=== PATIENT | female | born 2005 | race Hispanic/Latino ===

== ENCOUNTER 2025-03-26 02:13 | Inpatient (IN) | payer SELFPAY ==
[~2025-03-26] VITALS: Ht 144.8 cm; Wt 34.5 kg
--- NOTE | 2025-03-26 02:32 | ERN ---
ED Note History of Present Illness Stated Complaint: VOMITING FOR 20 DAYS Chief Complaint: Nausea,Vomiting,Diarrhea Time Seen by MD: 02:23 Dictation: This is a 20-year-old female who presented to the emergency room complaining of daily vomitings for the past 20 days. Apparently she saw a physician in [place] who told her that her digestive system is very slow. She also reports some nausea. No hematemesis or melena Her LMP is in August 2024 and has been extremely irregular. No fever chills or rigors. Temperature 97.4 pulse 110 respirations 20 blood pressure 114/75 with a pulse oximetry of 100% on room air Allergies: Uncoded Allergies: ' PROMOTIL ' (Allergy, Unknown, 03/26/25) Past Medical History Past Medical History: Other Additional Past Medical Hx: COLITIS Surgical History: Other Surgical History Other: COLON, RECTAL Family History: Negative Social History: Negative RN Note Reviewed/Agreed w/PFSH: Yes Review of System Dictation Constitutional: Negative for fever,chills, and weight loss Eyes: Negative for injury, pain,redness, and discharge ENT: Negative for injury,pain or swelling Cardiovascular: Negative for chest pain, palpitations, and edema Respiratory: Negative for shortness of breath, cough, and wheezing, Abdomen/GI: Negative for abdominal pain,diarrhea, and constipation positive nausea, vomiting, Back: Negative for injury and pain : Negative for injury, bleeding and discharge MS/Extremity: Negative for injury and deformity Skin: Negative for rash, and discoloration Neuro: Negative for headache, weakness, numbness, tingling, and seizure Psych: Negative for suicide ideation, homicidal ideation, and hallucinations Initial Vital Sign VS Vital Signs Date Time Temp Pulse Resp B/P (MAP) Pulse Ox O2 Delivery O2 Flow Rate FiO2 03/26/25 02:14 97.3 110 20 114/78 100 Room Air 03/26/25 02:20 0 21 Physical Exam Dictation General: awake, alert, NAD cachectic female Head/Face: Normocephalic, atraumatic Eyes: PERRL, EOMI, vision at baseline ENT: oral cavity clear, TMs clear, no signs of infection Neck: Trachea midline, supple, no nuchal rigidity Cardiovascular: RRR, normal S1/S2, No MRGs, no JVD Respiratory: CTAB, no respiratory distress, No rales or wheezes Abdomen: Soft, non-tender, non-distended, normal bowel sounds, no guarding or rebound. Skin: Warm, dry, normal turgor, no rash MS/Extremity: Pulses equal, no cyanosis, neurovascular intact, FROM Neuro: COAx4, GCS 15, strength 5/5, CN 2-12 intact, normal cerebellar exam, normal gait, Psych: Normal behavior, mood, and affect normal Extremities-trace edema without any palpable cords, Homans sign is negative Results (Laboratory/Radiology) Laboratory/Radiology Laboratory Tests Test 03/26/25 02:26 White Blood Count 7.7 K/uL (4.8-10.8) Red Blood Count 5.23 MIL/uL (4.00-5.50) Hemoglobin 14.9 g/dL (12.0-16.0) Hematocrit 44.2 % (36-48) Mean Corpuscular Volume 84.5 fL (80-100) Mean Corpuscular Hemoglobin 28.5 pg (27.0-33.0) Mean Corpuscular Hemoglobin Concent 33.7 g/dL (32.0-36.0) Red Cell Distribution Width 13.1 % (11.0-15.5) Platelet Count 341 K/uL (130-400) Mean Platelet Volume 10.1 fL (7.5-10.5) Immature Granulocyte % (Auto) 0.4 % (0-1) Neutrophils (%) (Auto) 83.6 % (40.0-77.0) H Lymphocytes (%) (Auto) 10.5 % (21.0-51.0) L Monocytes (%) (Auto) 4.4 % (3.0-13.0) Eosinophils (%) (Auto) 0.6 % (0.0-8.0) Basophils (%) (Auto) 0.5 % (0.0-5.0) Neutrophils # (Auto) 6.5 K/uL (1.8-7.7) Lymphocytes # (Auto) 0.8 K/uL (1.0-4.8) L Monocytes # (Auto) 0.3 K/uL (0.1-1.0) Eosinophils # (Auto) 0.05 K/uL (0.00-0.70) Basophils # (Auto) 0.04 K/uL (0.00-0.20) Absolute Immature Granulocyte (auto 0.03 K/uL (0-1) Nucleated Red Blood Cells 0.0 % (0.0-0.19) Sodium Level 136 mmol/L (136-145) Potassium Level 4.3 mmol/L (3.5-5.1) Chloride Level 95 mmol/L (101-111) L Carbon Dioxide Level 28 mmol/L (21-32) Blood Urea Nitrogen 8 mg/dL (7-18) Creatinine 0.8 mg/dL (0.5-1.0) Glomerular Filtration Rate Calc 107 mL/min (>90) Random Glucose 80 mg/dL (70-105) Total Calcium 9.6 mg/dL (8.5-10.1) Lipase 45 U/L (16-77) Thyroid Stimulating Hormone (TSH) 1.71 uIU/mL (0.36-3.74) Human Chorionic Gonadotropin, Quant 0 mIU/mL (0-5) Labs Reviewed?: Yes CT Scan Comment: REASON: vomitngs for the past 20 days, weight loss ORDERING PHYSICIAN: FERDINAND COBB MD PROCEDURE: ABD PEL W - CT ABDOMEN/PELVIS W/CONTRAST EXAM: CT Abdomen and Pelvis with IV contrast CLINICAL HISTORY: Vomiting for the past 20 days. Weight loss. TECHNIQUE: Thin collimated axial CT images of the abdomen and pelvis were obtained, with sagittal and coronal reformatted images also submitted. A CT scan is done according to ALARA (As Low As Reasonably Achievable). CONTRAST: Contrast information is not available. COMPARISON: None. FINDINGS: Unremarkable visualized lung parenchyma. No focal abnormality within the gallbladder, pancreas, spleen, or adrenals. There are multifocal wedge-shaped hypodensities in the right kidney on early postcontrast which which become homogeneous on delayed postcontrast phase, the largest focus measures up to 1.5 cm; the possibility of a mild form of acute pyelonephritis cannot be entirely excluded. Mild diffuse intrahepatic periportal edema. Diffuse mucosal thickening in the small and large bowel loops, concerning acute enterocolitis. Surgical sutures around the rectosigmoid area. Bowel loops are normal in caliber without evidence of obstruction or ileus. The appendix is normal. There is no abnormality within the urinary bladder. Unremarkable reproductive organs. Abdominal and pelvic vessels are patent. No lymphadenopathy. Minimal free fluid in the pelvis. There is no acute osseous abnormality. Bilateral chronic L5 spondylolysis with grade 1 anterior listhesis of L5 on S1. IMPRESSIONS: Acute enterocolitis. Mild diffuse intrahepatic periportal edema, concerning mild acute hepatitis. There are multifocal wedge-shaped hypodensities in the right kidney on early postcontrast which which become homogeneous on delayed postcontrast phase, the largest focus measures up to 1.5 cm; the possibility of a mild form of acute pyelonephritis cannot be entirely excluded. Minimal free fluid in the pelvis. There may be a possibility of hyponatremia. /[place] DICTATED BY: SHALOM CAMPOS Jr., MD DATE: 03/26/25708 ELECTRONICALLY SIGNED BY: SHALOM CAMPOS Jr., MD DATE: 03/26/25708 ED Course ED Course Orders Procedure Category Date Status Time Cbc With Differential LAB 03/26/25 Complete 02:27 Hcg,Quantitative LAB 03/26/25 Complete 02:27 Urinalysis Profile LAB 03/26/25 Logged 02:27 0.9%Nacl 1000ml (Ns PHA 03/26/25 Complete 1000ml) 02:30 Ondansetron 4mg Inj PHA 03/26/25 Complete (Zofran 4mg Inj) 02:30 Pantoprazole 40mg Inj PHA 03/26/25 Complete (Protonix 40mg Inj 02:30 Lipase LAB 03/26/25 Complete 02:27 Basic Metabolic Panel LAB 03/26/25 Complete 02:27 Drug Screen Urine LAB 03/26/25 Logged 02:29 Thyroid Stimulating LAB 03/26/25 Complete Hormone 02:26 Iohexol (Omnipaque) PHA 03/26/25 Complete 05:01 Ct Abdomen/Pelvis CT 03/26/25 Resulted W/Contrast 04:22 Zosyn 3.375gm+Ns 50ml PHA 03/26/25 Complete (Zosyn 3.375gm+Ns 06:30 Edm Admit Bridge Order ADM 03/26/25 Verified 06:46 Current Medications Medications (Trade) Dose Ordered Sig/Baljit Route PRN Reason Start Time Stop Time Status Last Admin Dose Admin Iohexol (Omnipaque) 75 ml STK-MED ONCE IV 03/26/25 05:01 03/26/25 05:01 DC Ondansetron HCl (zoFRAN 4MG INJ) 4 mg ONCE ONCE IVP 03/26/25 02:30 03/26/25 02:31 DC 03/26/25 02:36 Pantoprazole Sodium (PROTonix 40MG INJ) 40 mg ONCE ONCE IVP 03/26/25 02:30 03/26/25 02:31 DC 03/26/25 02:36 Piperacillin Sod/ Tazobactam Sod (Zosyn 3.375gm+NS 50ml) 3.375 gm ONCE ONCE IV 03/26/25 06:30 03/26/25 06:31 DC Sodium Chloride 1,000 ml @ 0 mls/hr ONCE ONCE IV 03/26/25 02:30 03/26/25 02:31 DC 03/26/25 02:36 Vital Signs Date Time Temp Pulse Resp B/P (MAP) Pulse Ox O2 Delivery O2 Flow Rate FiO2 03/26/25 03:25 78 18 114/80 99 Room Air* 0 21 03/26/25 02:20 97.7 113 18 112/84 99 Room Air* 0 21 03/26/25 02:14 97.3 110 20 114/78 100 Room Air We will perform diagnostic labs, advanced imaging and administer medications according to the patient's complaint. Once the results are available, will review and personally interpreted the labs to rule out any acute life-threa tening emergency the trach require immediate intervention and treatment. I will then re-evaluate the patient after treatment and diagnostic exams have return to determine whether the patient requires any further testing, can safely be discharged home or need further admission to hospital for additional treatment and evaluation. Labs reviewed CBC is with a normal limits BNP 7 with a normal limits except for a chloride of 95 urine test is negative. TSH is 1.71. CT scan of the abdomen and pelvis is very impressive for extensive enterocolitis periportal edema and also multiple changes in the kidneys. I recommended admission to the hospital for the intractable vomitings severe weight loss and patient and mother are agreeable 6:45 [facility] for admission and further management Medical Decision Making MDM Differential diagnosis: Gastritis, enterocolitis, cholecystitis, pancreatitis, diverticulitis Rationale: Tests considered and ordered secondary to shared decision making include: labs, ECG and radiology Previous outside records reviewed: Old ER visits. Risk of complication and/or morbidity or mortality of patient management: None Medications-Per medication reconciliation Need for hospitalization: Patient does meet criteria for hospitalization. Need for emergency major/minor surgery: No There are no social concerns with this patient. Prescription drug management Prescriptions will include symptomatic care Patient's prior external medical records from other ER visits were reviewed by me as indicated. Prior testing and results from previous visits were reviewed. Prior tests were taken into account with medical decision making and resource utilization, independent historian/historians were used to obtain complete medical history. I independently interpreted the test that were performed, results were reviewed by me and considered findings on radiology if ordered. Medical management and examination interpretation discussions were had by me with other qualified healthcare professionals as indicated for the patient's care. Problem List Problem List: (1) Enterocolitis (2) Intractable nausea and vomiting (3) Weight loss (4) Cachexia DX & DISP Disposition: Inpatient Decision to Admit Time: 06:23 Departure Impression: Primary Impression: Enterocolitis Additional Impressions: Intractable nausea and vomiting, Weight loss, Cachexia Condition: Stable Additional Instructions: Patient was informed of all the diagnostic labs and procedures conducted in the emergency room today and demonstrated understanding of the results. I personally reviewed and interpreted all the diagnostic exams performed in the ER today. The patient will be admitted to the hospital for further treatment and evaluation. Disposition-admit to facility Condition-stable/guarded Course-uncertain at this time Pain status-decreased Assessment-exam unchanged Admission Certification- I certify that the patients status is appropriate and is based on my best clinical judgment and the patient's condition as documented in the medical records Referrals: NONE (PCP) FERDINAND COBB MD Mar 26, 2025 02:32
[2025-03-26] MEDS: 0.9%NACL 1000ML 1,000 ML IV ONE (02:36)
[2025-03-26 02:40] LABS: IMMATURE GRANULOCYTE ABSOLUTE 0.03 K/uL (0-1); NUCLEATED RED BLOOD CELLS 0.0 % (0.0-0.19); PLATELET COUNT (AUTO) 341 K/uL (130-400); RED BLOOD CELL COUNT(AUTO) 5.23 MIL/uL (4.00-5.50); RED CELL DISTRIBUTION WIDTH 13.1 % (11.0-15.5); WHITE BLOOD COUNT (AUTO) 7.7 K/uL (4.8-10.8)
[2025-03-26 02:53] LABS: CREATININE 0.8 mg/dL (0.5-1.0); GLOMERULAR FILTR. RATE CALC 107.0 mL/min (>90); GLUCOSE,RANDOM 80.0 mg/dL (70-105); SODIUM SERUM 136.0 mmol/L (136-145); UREA NITROGEN, BLOOD 8.0 mg/dL (7-18)
[2025-03-26 03:07] LABS: HCG,QUANTITATIVE 0.0 mIU/mL (0-5)
[2025-03-26] MEDS ORDERED: IOHEXOL-350 75 ML VIAL IV ONE (05:01)
--- NOTE | 2025-03-26 06:09 | HMCIMG ---
EXAM: CT Abdomen and Pelvis with IV contrast CLINICAL HISTORY: Vomiting for the past 20 days. Weight loss. TECHNIQUE: Thin collimated axial CT images of the abdomen and pelvis were obtained, with sagittal and coronal reformatted images also submitted. A CT scan is done according to ALARA (As Low As Reasonably Achievable). CONTRAST: Contrast information is not available. COMPARISON: None. FINDINGS: Unremarkable visualized lung parenchyma. No focal abnormality within the gallbladder, pancreas, spleen, or adrenals. There are multifocal wedge-shaped hypodensities in the right kidney on early postcontrast which which become homogeneous on delayed postcontrast phase, the largest focus measures up to 1.5 cm; the possibility of a mild form of acute pyelonephritis cannot be entirely excluded. Mild diffuse intrahepatic periportal edema. Diffuse mucosal thickening in the small and large bowel loops, concerning acute enterocolitis. Surgical sutures around the rectosigmoid area. Bowel loops are normal in caliber without evidence of obstruction or ileus. The appendix is normal. There is no abnormality within the urinary bladder. Unremarkable reproductive organs. Abdominal and pelvic vessels are patent. No lymphadenopathy. Minimal free fluid in the pelvis. There is no acute osseous abnormality. Bilateral chronic L5 spondylolysis with grade 1 anterior listhesis of L5 on S1. IMPRESSIONS: Acute enterocolitis. Mild diffuse intrahepatic periportal edema, concerning mild acute hepatitis. There are multifocal wedge-shaped hypodensities in the right kidney on early postcontrast which which become homogeneous on delayed postcontrast phase, the largest focus measures up to 1.5 cm; the possibility of a mild form of acute pyelonephritis cannot be entirely excluded. Minimal free fluid in the pelvis. There may be a possibility of hyponatremia. /[place]
[2025-03-26] MEDS: ZOSYN 3.375GM +NS 50ML IV ONE (06:52)
--- NOTE | 2025-03-26 07:05 | NUR ---
Assumed care of pt at this time.
[2025-03-26] MEDS ORDERED: NITROGLYCERIN 0.4 MG SL TAB SL PRN (07:30)
[2025-03-26] MEDS ORDERED: GLUCAGON 1MG KIT 1 MG ML IM PRN (07:30)
[2025-03-26] MEDS ORDERED: FAMOTIDINE 20MG VIAL IV PRN (07:30)
[2025-03-26] MEDS ORDERED: PoTASSium chl 10% ELIXIR 20MEQ 20 MEQ/15 ML UDCUP PO PRN (07:30)
[2025-03-26] MEDS ORDERED: guaiFENesin-DM 200/20MG 10ML PO PRN (07:30)
[2025-03-26] MEDS ORDERED: MAGNESIUM 2GM PREMIX 50ML 50 ML IV PRN (07:30)
[2025-03-26] MEDS ORDERED: LACTULOSE 20 GM/30 ML UDCUP PO PRN (07:30)
[2025-03-26] MEDS ORDERED: MAG/ALUM/SIMETH 30 ML UDCUP PO PRN (07:30)
[2025-03-26 08:09] LABS: AMPHET/METH SCREEN,URINE NEGATIVE (NEGATIVE); BARBITURATE SCREEN, URINE NEGATIVE (NEGATIVE); CANNABINOID SCREEN,URINE NEGATIVE (NEGATIVE); COCAINE SCREEN,URINE NEGATIVE (NEGATIVE)
[2025-03-26 08:16] LABS: APPEARANCE,URINE CLEAR (CLEAR); GLUCOSE, URINE (UA) NEGATIVE (NEGATIVE); LEUKOCYTE ESTERASE ,URINE 75 Leu/uL (NEGATIVE); NITRATE,URINE NEGATIVE (NEGATIVE); OCCULT BLOOD,URINE NEGATIVE (NEGATIVE)
[2025-03-26 08:24] LABS: COVID19 (SARS ANTIGEN RAPID) PRESUMPTIVE NEGATIVE (NEGATIVE)
--- NOTE | 2025-03-26 08:25 | HMCIMG ---
EXAM: CR Chest, 1 View. CLINICAL HISTORY: congestion COMPARISON: None provided. FINDINGS: LUNGS: The lungs show no infiltrate or other acute finding. PLEURAL SPACES: No evidence of pleural effusion or pneumothorax. MEDIASTINUM: Cardiac size and mediastinal contours within normal limits. BONES: No aggressive appearing osseous lesion seen. IMPRESSION: No acute cardiopulmonary pathology is evident. /[place]
[2025-03-26 08:41] LABS: ADD UA MICROSCOPIC YES
[2025-03-26 08:42] LABS: INFLUENZA TYPE A Negative For Type A (NEGATIVE); INFLUENZA TYPE B Negative For Type B (NEGATIVE)
[2025-03-26 09:04] LABS: SQUAMOUS EPITHELIAL CELL,UR MANY /HPF (0-2)
--- NOTE | 2025-03-26 09:17 | NUR ---
GAVE REPORT TO SOBEIDA THOMPSON, PATIENT WAS TRANSFERRED TO ROOM #[id number], WAS TRANSPORTED VIA WHEELCHAIR WITH HER PERSONAL BELONGINGS.
[2025-03-26 09:30] VITALS: BP 104/69; PULSE 72; RESP 16; TEMP 98.2
--- NOTE | 2025-03-26 09:54 | HP ---
[facility] HISTORY AND PHYSICAL Date of Service: Mar 26, 2025 Time of Service: 09:43 PCP: In [place] Admitting: Dr Segura, Allergies: promotil HISTORY OF PRESENT ILLNESS: [Patient is20 years old female with a past medical history of ulcerative colitis s/p colon removal March 2024, partial rectal removal July 2024 followed by creation of J-pouch October 2024 in [facility], who came to emergency department with a complaint of nausea, vomiting for the past 20 days. Patient also stated that she lost about4 to 5 kg in the time as well. Family members/mother at the bedside. Per patient anything she would drink or eat she can not hold it and within an hour she would vomit everything. Patient denies any abdominal pain. Most recent vital signs 98.1 Pulse 79 respiration 15 blood pressure 110/57 influenza A negative influenza B negative COVID negative. UA positive for leuko cytosis. Toxicology negative. Sodium 136 potassium 4.3 CO2 28 BUN 8 creatinine 0.8 GFR 107 lipase 45 hCG negative . WBC 7.7 Hemoglobin 14.9 hematocrit 44.[address] abdomen/pelvis showed acute enterocolitis, intrahepatic periportal edema. P ossible acute hepatitis. Acute pyelonephritis. Chest x-ray negative. Patient will be admitted under hospitalist care for further evaluation/recommendation. GI will be consulted for further plan and recommendations. Dietary consultation will be provided to patient for severe malnutrition. A.m. labs. REVIEW OF SYSTEMS CONSTITUTIONAL: Denies fevers, chills, or night sweats. No unintentional weight loss reported. NEUROLOGICAL: Denies headache, amaurosis fugax, motor weakness, sensory deficit, vertigo/spinning sensation, gait abnormalities, or tremors. ENT: No hearing loss, otalgia, otorrhea, rhinitis, rhinorrhea, hoarseness, or sore throat. CARDIOVASCULAR: Denies any exertional angina, dyspnea on exertion, orthopnea, paroxysmal nocturnal dyspnea, palpitations, life-threatening arrhythmias, claudication. PULMONARY: Denies any shortness of breath, cough, phlegm/sputum, hemoptysis, pleuritic chest pain. SLEEP: Denies morning headaches, daytime somnolence or napping. Denies difficulty falling asleep, staying asleep, waking from sleep. Denies knowledge of snoring. GASTROINTESTINAL: Denies any type of dysphagia to either liquids or solids. Denies pyrosis, early satiety, abdominal pain, diarrhea, constipation, or changes in stool consistency or caliber. Denies coffee-ground emesis, hematemesis, hematochezia, or melanotic stools. Severe nausea and vomiting GENITOURINARY: Denies frequency, urgency, nocturia, hematuria or incontinence (Storage/Irritative symptoms.) Low urinary stream, straining to void, urinary intermittency or hesitancy, splitting of the voiding stream, terminal dribbling. ENDOCRINOLOGIC: Denies polyuria, polydipsia, polyphagia or heat/cold intolerances. HEMATOLOGIC: Denies thrombophilia/previous clots, or coagulopathy/bleeding disorders. ONCOLOGIC: Denies personal history of malignancy. DERMATOLOGIC: Denies rashes or pruritus. PSYCHIATRIC: Denies any suicidal or homicidal ideation. Denies hallucinations. PAST MEDICAL HISTORY: [ Ulcerative colitis ] PAST SURGICAL HISTORY: [ : Removed March 2024, partial rectal removed July 2024. J pouch creation October 2024. All the surgeries we will performed in [facility] ] PAST SOCIAL HISTORY: [ Patient denies smoking. Patient denies any drug illicit. Patient denies any alcohol illicit ] FAMILY HISTORY: [ Patient lives at home with the family] Uncoded Allergies: ' PROMOTIL ' (Allergy, Unknown, 03/26/25) PHYSICAL EXAM GENERAL APPEARANCE: The patient is awake, alert, and oriented, in no acute cardiopulmonary distress. NEUROLOGICAL: Cranial nerves II-XII grossly intact. Motor is 5/5 in bilateral upper and lower extremities proximal to distal. No sensory deficits. HEENT: Face is symmetric. Pupils are equal and reactive. Extraocular movements are intact. NECK: Supple. No JVD. No thyromegaly. No submental, submandibular, pre- /postauricular, occipital or supraclavicular lymphadenopathy. CHEST: Normal chest expansion. No Telemetry. LUNGS: Absence of any rales, rhonchi or any wheezing. CARDIOVASCULAR: Regular. S1 and S2 normal. No appreciable rubs, murmurs or gallops. ABDOMEN: Soft, nontender, and nondistended. There is no rebound, voluntary guarding, or rigidity. : Deferred. No Milligan. EXTREMITIES: Non-edematous and not cyanotic. No clubbing. Good capillary refill. SKIN: No skin breakdown. Vital Sign (Last 24 Hours) 03/26/25 09:26 Temp 98.1 Pulse 79 Resp 15 B/P (MAP) 110/57 Pulse Ox 99 O2 Delivery Room Air* O2 Flow Rate 0 FiO2 21 LABS: Laboratory: Test 03/26/25 09:18 03/26/25 07:24 03/26/25 02:26 Range/Units Whole Blood Glucose 75 70-110 MG/DL Urine Color LIGHT-YELLOW YELLOW Urine Appearance CLEAR CLEAR Urine pH 6.5 5.0-8.0 Urine Specific [place] >1.040 1.001-1.031 Urine Protein 30 H NEGATIVE mg/dL Urine Glucose (UA) NEGATIVE NEGATIVE mg/dL Urine Ketones >=80 NEGATIVE mg/dL Urine Occult Blood NEGATIVE NEGATIVE Urine Nitrate NEGATIVE NEGATIVE Urine Bilirubin NEGATIVE NEGATIVE mg/dL Urine Urobilinogen 0.2 0.2-1.0 mg/dL Urine Leukocyte Esterase 75 H NEGATIVE [place]/uL Urine RBC 11-25 H 0-1 /HPF Urine WBC 6-10 H 0-1 /HPF Urine Squamous Epithelial Cells MANY 0-2 /HPF Urine Bacteria MOD None Seen /HPF Urine Opiates Screen NEGATIVE NEGATIVE Urine Barbiturates Screen NEGATIVE NEGATIVE Urine Phencyclidine Screen NEGATIVE NEGATIVE Urine Amphetamines Screen NEGATIVE NEGATIVE Urine Benzodiazepines Screen NEGATIVE NEGATIVE Urine Cocaine Screen NEGATIVE NEGATIVE Urine Marijuana (THC) Screen NEGATIVE NEGATIVE Influenza Type A Antigen Negative For Type A NEGATIVE Influenza Type B Antigen Negative For Type B NEGATIVE SARS-CoV-2 Antigen (Rapid) PRESUMPTIVE NEGATIVE NEGATIVE White Blood Count 7.7 4.8-10.8 K/uL Red Blood Count 5.23 4.00-5.50 MIL/uL Hemoglobin 14.9 12.0-16.0 g/dL Hematocrit 44.2 36-48 % Mean Corpuscular Volume 84.5 80-100 fL Mean Corpuscular Hemoglobin 28.5 27.0-33.0 pg Mean Corpuscular Hemoglobin Concent 33.7 32.0-36.0 g/dL Red Cell Distribution Width 13.1 11.0-15.5 % Platelet Count 341 130-400 K/uL Mean Platelet Volume 10.1 7.5-10.5 fL Immature Granulocyte % (Auto) 0.4 0-1 % Neutrophils (%) (Auto) 83.6 H 40.0-77.0 % Lymphocytes (%) (Auto) 10.5 L 21.0-51.0 % Monocytes (%) (Auto) 4.4 3.0-13.0 % Eosinophils (%) (Auto) 0.6 0.0-8.0 % Basophils (%) (Auto) 0.5 0.0-5.0 % Neutrophils # (Auto) 6.5 1.8-7.7 K/uL Lymphocytes # (Auto) 0.8 L 1.0-4.8 K/uL Monocytes # (Auto) 0.3 0.1-1.0 K/uL Eosinophils # (Auto) 0.05 0.00-0.70 K/uL Basophils # (Auto) 0.04 0.00-0.20 K/uL Absolute Immature Granulocyte (auto 0.03 0-1 K/uL Nucleated Red Blood Cells 0.0 0.0-0.19 % Sodium Level 136 136-145 mmol/L Potassium Level 4.3 3.5-5.1 mmol/L Chloride Level 95 L 101-111 mmol/L Carbon Dioxide Level 28 21-32 mmol/L Blood Urea Nitrogen 8 7-18 mg/dL Creatinine 0.8 0.5-1.0 mg/dL Glomerular Filtration Rate Calc 107 >90 mL/min Random Glucose 80 70-105 mg/dL Total Calcium 9.6 8.5-10.1 mg/dL Lipase 45 16-77 U/L Thyroid Stimulating Hormone (TSH) 1.71 0.36-3.74 uIU/mL Human Chorionic Gonadotropin, Quant 0 0-5 mIU/mL Current Medications Medications (Trade) Dose Ordered Sig/Baljit Route PRN Reason Start Time Stop Time Status Last Admin Dose Admin Acetaminophen (TYLenol 325MG TAB) 650 mg Q4H PRN PO MILD PAIN (1-3) 03/26/25 07:30 04/25/25 07:29 Acetaminophen (TYLenol 325MG TAB) 650 mg Q6H PRN PO MILD PAIN (1-3) 03/26/25 07:30 03/26/25 07:22 DC Acetaminophen (TYLenol 325MG TAB) 650 mg Q6H PRN PO TEMPERATURE GREATER THAN 101.5 03/26/25 07:30 04/25/25 07:29 Al Hydroxide/Mg Hydroxide (MAALox PLUS 30ML) 30 ml Q6H PRN PO INDIGESTION 03/26/25 07:30 04/25/25 07:29 Dextrose (D50w) 50 ml AD PRN IV HYPOGLYCEMIA PROTOCOL 03/26/25 07:30 04/25/25 07:29 Diphenhydramine HCl (BENAdryl INJ) 25 mg Q6H PRN IV SEVERE ITCHING/RASH 03/26/25 07:30 04/25/25 07:29 Famotidine (Pepcid 20mg Vial) 20 mg BID PRN IV NAUSEA/VOMITING 03/26/25 07:30 04/25/25 07:29 Glucagon (Glucagon 1mg Kit) 1 mg AD PRN IM HYPOGLYCEMIA PROTOCOL 03/26/25 07:30 04/25/25 07:29 Guaifenesin/ Dextromethorphan (RobiTUSSin DM 200/20MG 10ML) 10 ml Q4H PRN PO COUGH 03/26/25 07:30 04/25/25 07:29 Hydralazine HCl (APRESOLine 20MG INJ) 10 mg Q6H PRN IV For:SBP above 160;DBP above 90 03/26/25 07:30 04/25/25 07:29 Insulin Human Regular (humuLIN R 100 UNIT/ML 3ML) INSULIN SLIDING SCAL... ACHS SQ 03/26/25 07:30 04/25/25 07:29 Ketorolac Tromethamine (toRADol) 15 mg Q8H PRN IV MODERATE PAIN (4-6) 03/26/25 07:30 03/31/25 07:29 Lactulose (Constulose 20gm/ 30ml Udcup) 20 gm BID PRN PO CONSTIPATION 03/26/25 07:30 04/25/25 07:29 Magnesium Sulfate 50 ml @ 0 mls/hr PROTOCOL PRN IV OTHER [SEE ORDER COMMENTS] 03/26/25 07:30 04/25/25 07:29 Morphine Sulfate (morPHINE 2MG SYG) 1 mg Q4H PRN IVP SEVERE PAIN (7-10) 03/26/25 07:30 04/02/25 07:29 Nitroglycerin (Nitrostat) 0.4 mg PROTOCOL PRN SL CHEST PAIN 03/26/25 07:30 04/25/25 07:29 Ondansetron HCl (zoFRAN 4MG INJ) 4 mg Q6H PRN IV NAUSEA/VOMITING 03/26/25 07:30 04/25/25 07:29 Piperacillin Sod/ Tazobactam Sod 50 ml @ 12.5 mls/hr ZOSY8 IV 03/26/25 13:00 04/05/25 12:59 Potassium Chloride 100 ml @ 100 mls/hr AD PRN IV POTASSIUM PROTOCOL 03/26/25 07:30 04/25/25 07:29 Potassium Chloride (K-Dur/Klor-Con 20meq) 20 meq AD PRN PO POTASSIUM PROTOCOL 03/26/25 07:30 04/25/25 07:29 Potassium Chloride (KCl 10% Elixir 20meq/15ml) 20 meq AD PRN PO POTASSIUM PROTOCOL 03/26/25 07:30 04/25/25 07:29 Sodium Chloride 1,000 ml @ 100 mls/hr Q10H IV 03/26/25 07:30 04/25/25 07:29 Zolpidem Tartrate (AmbIEN) 5 mg HS PRN PO INSOMNIA 03/26/25 07:30 04/25/25 07:29 DIAGNOSTICS / RADIOLOGY: [ ] ASSESSMENT: [ Gastroparesis POA Acute enterocolitis POA Intractable nausea and vomiting POA Intra hepatic periportal edema POA Possible acute hepatitis new diagnosis POA Acute pyelonephritis POA Severe malnutrition POA Hypertension POA Acute complicated cystitis POA Ulcerative colitis History of colon removed March 2024 History of partial rectum removal July 2024 J-pouch creation October 2024 ] PLAN: [ Patient admitted echo surgical floor as inpatient GI consulted Dietary consulted for malnutrition NPO Zosyn prophylaxis Normal saline at 100 mL/hour UA positive for leukocytosis Urine culture pending CT abdomen/pelvis showed acute enterocolitis, intrahepatic periportal edema, acute hepatitis, acute pyelonephritis Toxicology negative Ultrasound kidney pending Chest x-ray negative Ultrasound abdomen pending A.m. labs Hyper hypoglycemia protocol Hypomagnesemia protocol Hypokalemia protocol PRN pain medications Blood culture pending ] ADVANCED CARE PLANNING 1. Which of the following were discussed? Hospice Care - Yes / No Therapeutic options - Yes / No Advance Directives - Yes / No Other discussions - 2. Discussed with who? Patient 3. Voluntary nature of this service was explained to the patient? Yes / No 4. Amount of time spent - __35 minutes 5. Reviewed by Physician? (if this service was performed by NPP) Yes / No ATTESTATION BY PHYSICIAN I have seen and examined the patient. I reviewed the documentation, medical decision making, and treatment plan as noted by the mid-level provider above. I agree with the findings and plan of care. LES SEGURA MD, KATARZYNA B MANAGER PLAN Mar 26, 2025 09:54
[2025-03-26] MEDS ORDERED: MIRTAZAPINE PO (10:02)
[2025-03-26] MEDS ORDERED: [UNRECOGNIZED DRUG - OTHER] PO (10:05)
[2025-03-26] MEDS ORDERED: OMEP20TA20 PO (10:06)
[2025-03-26] MEDS ORDERED: ONDA-105 PO (10:06)
[2025-03-26 10:40] VITALS: O2SAT 98
[2025-03-26] MEDS: 0.9%NACL 1000ML 1,000 ML IV SCH (11:23)
[2025-03-26 12:00] VITALS: BP 97/75; PULSE 83; RESP 16; TEMP 97.7
[2025-03-26 16:00] VITALS: BP 95/71; PULSE 65; RESP 16; TEMP 97.5
[2025-03-26] MEDS: DEXTROSE 50%-WATER 50 ML DISP.SYRIN IV PRN (16:38)
[2025-03-26] MEDS: ZOSYN 3.375GM+NS 50ML 50 ML IV SCH (16:38)
[2025-03-26 20:40] VITALS: O2SAT 98
[2025-03-26 21:31] VITALS: BP 110/64; PULSE 75; RESP 19; TEMP 97.4
[2025-03-27] VITALS (23 sets, daily range): BP systolic 90–129; BP diastolic 53–78; PULSE 58–78; RESP 15–20; TEMP 97.1–98.6; O2SAT 98–100
[2025-03-27 05:07] LABS: IMMATURE GRANULOCYTE ABSOLUTE 0.01 K/uL (0-1); NUCLEATED RED BLOOD CELLS 0.0 % (0.0-0.19); PLATELET COUNT (AUTO) 230 K/uL (130-400); RED BLOOD CELL COUNT(AUTO) 3.75 MIL/uL (4.00-5.50); RED CELL DISTRIBUTION WIDTH 13.2 % (11.0-15.5); WHITE BLOOD COUNT (AUTO) 3.1 K/uL (4.8-10.8)
[2025-03-27 05:36] LABS: ASPARTATE AMINOTRANSFERASE 16.0 U/L (10-37); CREATINE KINASE, TOTAL 146.0 U/L (21-232); CREATININE 0.5 mg/dL (0.5-1.0); GLOMERULAR FILTR. RATE CALC 137.0 mL/min (>90); GLUCOSE,RANDOM 70.0 mg/dL (70-105); SODIUM SERUM 140.0 mmol/L (136-145); TOTAL PROTEIN, SERUM 5.8 g/dL (6.0-8.3); UREA NITROGEN, BLOOD 4.0 mg/dL (7-18)
--- NOTE | 2025-03-27 06:20 | HMCIMG ---
EXAMINATION: ULTRASOUND OF THE ABDOMEN (LIMITED) WITH COLOR DOPPLER. CLINICAL HISTORY: Enterocolitis. Hepatic edema. Possible hepatitis, pyelonephritis. COMPARISON: CT abdomen and pelvis with contrast from the same day. TECHNIQUE: Real-time grayscale ultrasound images of the abdomen. In addition, color Doppler is medically necessary to perform in order to evaluate vascularity and blood flow. FINDINGS: Liver: Normal in caliber, the right hepatic lobe measures 14.2 cm in the craniocaudal dimension. There is increased echogenicity of the hepatic parenchyma. There is no focal hepatic abnormality. There is normal spectral Doppler of the main portal vein (PSV is 16 cm/s). There is left intrahepatic biliary radical dilatation that measures 0.4 cm. Gallbladder: Within normal limits with normal wall thickness (0.2 cm). No hyperemia or pericholecystic free fluid. There is no cholelithiasis. Common bile duct is normal in caliber, measuring 0.3 cm. Spleen is normal in caliber and measures 9.4 x 2.6 x 2.2 cm in craniocaudal, AP and transverse dimensions respectively. No focal lesions. Pancreas: Normal in caliber and echotexture. No calcification or dilated pancreatic duct. The kidneys are normal in caliber, the right kidney measures 9.4 x 3.7 x 4.0 cm and the left kidney measures 9.3 x 4.8 x 5.3 cm in craniocaudal, AP, and transverse dimensions respectively. There is normal renal cortical thickness, and cortical echogenicity. There is no renal calculus or hydronephrosis. The proximal, mid, and distal aspects of abdominal aorta are normal in caliber measuring 1.6 cm, 1.5 cm, and 1.2 cm in the AP dimension respectively. Visualized aspects of the inferior vena cava are unremarkable. IMPRESSION: Hepatic steatosis. Dilated left intrahepatic biliary radical. Recommend MRCP. No significant changes. /Araceli
[2025-03-27] MEDS: DEXTROSE 5 % AND 0.9 % NACL 1,000 ML IV SCH (09:05)
--- NOTE | 2025-03-27 09:35 | NUR ---
DCP: HOME met with pt and her mother Karen García at bedside. Pt is from [facility] and currently staying with aunt Kathryn Torres [phone]. Pt states she does no work, but attends college. Pt drives, is acive and independent. Uses no DME or in home care services. PCP is in [facility] and she gets gets there as well. Pt to return to aunt's home at ar. Addendum: 03/27/25 at 0938 by QUIRINO GONCALVES Amended: Links added.
--- NOTE | 2025-03-27 13:51 | NUR ---
Nutrition consult per PCM eval Reviewed labs, notes, and medications. Pt s/p colon removal , J-pouch October, N/V for 20 days POA, attends [facility], [facility]D, IV fluids, IV abx, A1C WNL, BG 57(L), K 3(L) per chart review. Wt via standing scale, last BM 03/26/25, moderate fat and and muscle loss, no edema, no wounds per nursing. Family present during visit. Communicated in Bengali. Pt reported lactose intolerance, UBW of 96 lb six months ago, no insurance, goes to [facility], PCP in [facility], , no MVI. 15% wt loss within 6 months, significant wt loss. Mother feeding her during the visit. Visually assessed moderate fat and muscle loss. RD reviewed high calorie MNT, family verbalized understanding. Pt with severe PCM, Supplement thiamin 100 mg/day for 5-7 days + MVI QD for at least 10 days. Recommendations: -Provide prostat jello + CLD + gatorade BID w/ am and dinner tray -Monitor PO intake -Encourage PO intake as able -Monitor BM -If no BM >3 days consider stool softener -Monitor electrolytes -Replenish electrolytes per protocol -Monitor wts -Reweigh as able -Order Vit D, vit b-12 labs to rule out deficiencies -Provide MVI + b-complex QD due to severe PCM -Advance diet when medically feasible -Recommend Pt to follow up with PCP -Monitor goals of care RD to follow + available for consult per protocol Addendum: 03/27/25 at [address] Amended: Links added.
--- NOTE | 2025-03-27 15:00 | NUR ---
Order received and spoke to patient and family. Patient denies any need for PT at this time. Patient and family verbalized no skilled PT need. DC from PT. Addendum: 03/27/25 at 1546 by XAVIER THOMSON PT Amended: Links added.
--- NOTE | 2025-03-27 17:26 | PN ---
[facility] PROGRESS NOTE Date of Service: Mar 27, 2025 Time of Service: 17:08 SUBJECTIVE: Patient is 20 years female with a past medical history of ulcerative colitis s/p colon removal March 2024, partial rectal removal July 2024 followed by creation of J-pouch October 2024 in [facility], who came to emergency department with a complaint of nausea, vomiting for the past 20 days. Patient also stated that she lost about4 to 5 kg in the time as well. Family members/mother at the bedside. Per patient anything she would drink or eat she can not hold it and within an hour she would vomit everything. Patient denies any abdominal pain. Most recent vital signs 98.1 Pulse 79 respiration 15 blood pressure 110/57 influenza A negative influenza B negative COVID negative. UA positive for leukocytosis. Toxicology negative. Sodium 136 potassium 4.3 CO2 28 BUN 8 creatinine 0.8 GFR 107 lipase 45 hCG negative . WBC 7.7 Hemoglobin 14.9 hematocrit 44.[address] abdomen/pelvis showed acute enterocolitis, intrahepatic periportal edema. Possible acute hepatitis. Acute pyelonephritis. Chest x-ray negative. Patient will be admitted under hospitalist care for further evaluation/recommendation. GI will be consulted for further plan and recommendations. Dietary consultation will be provided to patient for severe malnutrition. A.m. labs. 03/27/2025: The patient is seen in the room [id number]. She is awake, alert, orientedx3. Today the patient reported experiencing rectal bleeding during bowel movements in the morning. The patient described no associated pain but noted a sensation s, which lasted of urge defecate which lasted about 6-7 minutes. The patient experienced nausea for the past 20 days and reported vomiting up to 4 times a day while at home, with the vomit sometimes being green. The patient did not report any abdominal pain, diarrhea, constipation chills, fever, urinary symptoms during urination. The patient noted a decreased appetite and weight loss since surgery in March 2024, presenting in a weight loss of about 16-17 kg. The patient has been experiencing increased stool frequency and urgency, going to the restroom up to 9 times per day, and this condition improved by December and January 2025. EGD was done and revealed normal esophagus normal duodenum, patchy moderate inflammation characterized by congestion and erythema was found in the entire examined stomach. General surgery recommendation was given. Patient changed from full liquid diet to clear diet. Patient has been identified as lactose intolerant. MRCP recommendation was given due to a dilated biliary duct. Keep the patient on NPO on the midnight before MRCP procedure. Her vitals are normal. Labs show WBC trending from 7.7 to 3.1, RBC trending down from 5.23 To 3.75, hemoglobin 10.6, hematocrit 33.0. Chemistry revealed ketones. She has severe protein calorie malnutrition. REVIEW OF SYSTEMS CONSTITUTIONAL: Denies fevers, chills, or night sweats. No unintentional weight loss reported. NEUROLOGICAL: Denies headache, amaurosis fugax, motor weakness, sensory deficit, vertigo/spinning sensation, gait abnormalities, or tremors. ENT: No hearing loss, otalgia, otorrhea, rhinitis, rhinorrhea, hoarseness, or sore throat. CARDIOVASCULAR: Denies any exertional angina, dyspnea on exertion, orthopnea, p aroxysmal nocturnal dyspnea, palpitations, life-threatening arrhythmias, claudication. PULMONARY: Denies any shortness of breath, cough, phlegm/sputum, hemoptysis, pleuritic chest pain. SLEEP: Denies morning headaches, daytime somnolence or napping. Denies difficulty falling asleep, staying asleep, waking from sleep. Denies knowledge of snoring. GASTROINTESTINAL: Denies any type of dysphagia to either liquids or solids. Denies pyrosis, early satiety, abdominal pain, diarrhea, constipation, or changes in stool consistency or caliber. Denies coffee-ground emesis, hematemesis, hematochezia, or melanotic stools. Severe nausea and vomiting GENITOURINARY: Denies frequency, urgency, nocturia, hematuria or incontinence (Storage/Irritative symptoms.) Low urinary stream, straining to void, urinary intermittency or hesitancy, splitting of the voiding stream, terminal dribbling. ENDOCRINOLOGIC: Denies polyuria, polydipsia, polyphagia or heat/cold intolerances. HEMATOLOGIC: Denies thrombophilia/previous clots, or coagulopathy/bleeding disorders. ONCOLOGIC: Denies personal history of malignancy. DERMATOLOGIC: Denies rashes or pruritus. PSYCHIATRIC: Denies any suicidal or homicidal ideation. Denies hallucinations. PHYSICAL EXAM GENERAL APPEARANCE: The patient is awake, alert, and oriented, in no acute cardiopulmonary distress. NEUROLOGICAL: Cranial nerves II-XII grossly intact. Motor is 5/5 in bilateral upper and lower extremities proximal to distal. No sensory deficits. HEENT: Face is symmetric. Pupils are equal and reactive. Extraocular movements are intact. NECK: Supple. No JVD. No thyromegaly. No submental, submandibular, pre- /postauricular, occipital or supraclavicular lymphadenopathy. CHEST: Normal chest expansion. No Telemetry. LUNGS: Absence of any rales, rhonchi or any wheezing. CARDIOVASCULAR: Regular. S1 and S2 normal. No appreciable rubs, murmurs or gallops. ABDOMEN: Soft, nontender, and nondistended. There is no rebound, voluntary guarding, or rigidity. : Deferred. No Milligan. EXTREMITIES: Non-edematous and not cyanotic. No clubbing. Good capillary refill. SKIN: No skin breakdown. Vital Signs (last 8hr) Date Time Temp Pulse Resp B/P (MAP) Pulse Ox O2 Delivery O2 Flow Rate FiO2 03/27/25 12:15 98.2 66 16 94/64 100 Room Air 03/27/25 12:10 97.2 65 16 103/62 99 Room Air 03/27/25 12:05 97.2 59 16 101/65 99 Room Air 03/27/25 12:00 97.2 62 16 100/63 99 Room Air 03/27/25 11:55 97.2 61 16 98/61 99 Room Air 03/27/25 11:50 97.2 62 15 100/60 97 Room Air 03/27/25 11:45 97.2 59 15 102/63 97 Room Air 03/27/25 11:40 97.2 60 15 101/66 96 Nasal Cannula 2.0 24 03/27/25 11:30 Mask 03/27/25 11:30 Mask 10.0 03/27/25 10:30 98.6 61 16 96/53 100 Room Air LABS: Laboratory: Test 03/27/25 15:30 03/27/25 15:02 03/27/25 10:34 03/27/25 08:47 Range/Units Whole Blood Glucose 86 # 70-110 MG/DL Hemoglobin 13.9 # 12.0-16.0 g/dL Hematocrit 44.3 # 36-48 % Bedside Glucose Comment Notified Nurse Whole Blood Ketones Quantitative 0.9 H 0.0-0.6 mmol/L Test 03/27/25 05:00 03/26/25 07:24 03/26/25 02:26 Range/Units White Blood Count 3.1 L 4.8-10.8 K/uL Red Blood Count 3.75 L 4.00-5.50 MIL/uL Mean Corpuscular Volume 88.0 80-100 fL Mean Corpuscular Hemoglobin 28.3 27.0-33.0 pg Mean Corpuscular Hemoglobin Concent 32.1 32.0-36.0 g/dL Red Cell Distribution Width 13.2 11.0-15.5 % Platelet Count 230 # 130-400 K/uL Mean Platelet Volume 10.0 7.5-10.5 fL Immature Granulocyte % (Auto) 0.3 0-1 % Neutrophils (%) (Auto) 52.8 40.0-77.0 % Lymphocytes (%) (Auto) 36.7 21.0-51.0 % Monocytes (%) (Auto) 6.7 3.0-13.0 % Eosinophils (%) (Auto) 2.9 0.0-8.0 % Basophils (%) (Auto) 0.6 0.0-5.0 % Neutrophils # (Auto) 1.7 L 1.8-7.7 K/uL Lymphocytes # (Auto) 1.2 1.0-4.8 K/uL Monocytes # (Auto) 0.2 0.1-1.0 K/uL Eosinophils # (Auto) 0.09 0.00-0.70 K/uL Basophils # (Auto) 0.02 0.00-0.20 K/uL Absolute Immature Granulocyte (auto 0.01 0-1 K/uL Nucleated Red Blood Cells 0.0 0.0-0.19 % Sodium Level 140 136-145 mmol/L Potassium Level 3.0 *L 3.5-5.1 mmol/L Chloride Level 108 101-111 mmol/L Carbon Dioxide Level 22 21-32 mmol/L Blood Urea Nitrogen 4 L 7-18 mg/dL Creatinine 0.5 0.5-1.0 mg/dL Glomerular Filtration Rate Calc 137 >90 mL/min Random Glucose 70 70-105 mg/dL Lactic Acid Level 0.9 0.8-2.5 mmol/L Total Calcium 7.7 L 8.5-10.1 mg/dL Magnesium Level 1.80 1.80-2.40 mg/dL Total Bilirubin 0.8 0.2-1.0 mg/dL Direct Bilirubin 0.2 0.0-0.3 mg/dL Aspartate Amino Transf (AST/SGOT) 16 10-37 U/L Alanine Aminotransferase (ALT/SGPT) 21 12-78 U/L Alkaline Phosphatase 80 50-136 U/L Ammonia 12 11-32 umol/L Total Creatine Kinase 146 21-232 U/L B-Type Natriuretic Peptide 9 0-100 pg/mL Total Protein 5.8 L 6.0-8.3 g/dL Albumin 2.7 L 3.5-5.0 g/dL Amylase Level 24 L 25-115 U/L Lipase 38 16-77 U/L Vitamin B12 Level 1051 H 193-986 pg/mL Procalcitonin < 0.05 L 0.05-0.5 ng/mL Thyroid Stimulating Hormone (TSH) 2.14 # 0.36-3.74 uIU/mL Free Thyroxine (T4) Direct 1.26 0.76-1.46 ng/dL Urine Color LIGHT-YELLOW YELLOW Urine Appearance CLEAR CLEAR Urine pH 6.5 5.0-8.0 Urine Specific [place] >1.040 1.001-1.031 Urine Protein 30 H NEGATIVE mg/dL Urine Glucose (UA) NEGATIVE NEGATIVE mg/dL Urine Ketones >=80 NEGATIVE mg/dL Urine Occult Blood NEGATIVE NEGATIVE Urine Nitrate NEGATIVE NEGATIVE Urine Bilirubin NEGATIVE NEGATIVE mg/dL Urine Urobilinogen 0.2 0.2-1.0 mg/dL Urine Leukocyte Esterase 75 H NEGATIVE Aspen/uL Urine RBC 11-25 H 0-1 /HPF Urine WBC 6-10 H 0-1 /HPF Urine Squamous Epithelial Cells MANY 0-2 /HPF Urine Bacteria MOD None Seen /HPF Urine Opiates Screen NEGATIVE NEGATIVE Urine Barbiturates Screen NEGATIVE NEGATIVE Urine Phencyclidine Screen NEGATIVE NEGATIVE Urine Amphetamines Screen NEGATIVE NEGATIVE Urine Benzodiazepines Screen NEGATIVE NEGATIVE Urine Cocaine Screen NEGATIVE NEGATIVE Urine Marijuana (THC) Screen NEGATIVE NEGATIVE Influenza Type A Antigen Negative For Type A NEGATIVE Influenza Type B Antigen Negative For Type B NEGATIVE SARS-CoV-2 Antigen (Rapid) PRESUMPTIVE NEGATIVE NEGATIVE Hemoglobin A1c 4.9 4.0-6.0 % Estimated Average Glucose (eAG) 94 70-126 mg/dL Human Chorionic Gonadotropin, Quant 0 0-5 mIU/mL Current Medications Medications (Trade) Dose Ordered Sig/Baljit Route PRN Reason Start Time Stop Time Status Last Admin Dose Admin Acetaminophen (TYLenol 325MG TAB) 650 mg Q4H PRN PO MILD PAIN (1-3) 03/26/25 07:30 04/25/25 07:29 Acetaminophen (TYLenol 325MG TAB) 650 mg Q6H PRN PO MILD PAIN (1-3) 03/26/25 07:30 03/26/25 07:22 DC Acetaminophen (TYLenol 325MG TAB) 650 mg Q6H PRN PO TEMPERATURE GREATER THAN 101.5 03/26/25 07:30 04/25/25 07:29 Al Hydroxide/Mg Hydroxide (MAALox PLUS 30ML) 30 ml Q6H PRN PO INDIGESTION 03/26/25 07:30 04/25/25 07:29 Dextrose (D50w) 50 ml AD PRN IV HYPOGLYCEMIA PROTOCOL 03/26/25 07:30 04/25/25 07:29 03/27/25 05:31 50 ML Dextrose/Sodium Chloride 1,000 ml @ 75 mls/hr [id number] IV 03/27/25 08:30 04/26/25 08:29 03/27/25 09:05 75 MLS/HR Diphenhydramine HCl (BENAdryl INJ) 25 mg Q6H PRN IV SEVERE ITCHING/RASH 03/26/25 07:30 04/25/25 07:29 Famotidine (Pepcid 20mg Vial) 20 mg BID PRN IV NAUSEA/VOMITING 03/26/25 07:30 04/25/25 07:29 Glucagon (Glucagon 1mg Kit) 1 mg AD PRN IM HYPOGLYCEMIA PROTOCOL 03/26/25 07:30 04/25/25 07:29 Guaifenesin/ Dextromethorphan (RobiTUSSin DM 200/20MG 10ML) 10 ml Q4H PRN PO COUGH 03/26/25 07:30 04/25/25 07:29 Hydralazine HCl (APRESOLine 20MG INJ) 10 mg Q6H PRN IV For:SBP above 160;DBP above 90 03/26/25 07:30 04/25/25 07:29 Insulin Human Regular (humuLIN R 100 UNIT/ML 3ML) INSULIN SLIDING SCAL... ACHS SQ 03/26/25 07:30 04/25/25 07:29 Ketorolac Tromethamine (toRADol) 15 mg Q8H PRN IV MODERATE PAIN (4-6) 03/26/25 07:30 03/27/25 08:16 DC Lactulose (Constulose 20gm/ 30ml Udcup) 20 gm BID PRN PO CONSTIPATION 03/26/25 07:30 04/25/25 07:29 Magnesium Sulfate 50 ml @ 0 mls/hr PROTOCOL PRN IV OTHER [SEE ORDER COMMENTS] 03/26/25 07:30 04/25/25 07:29 Morphine Sulfate (morPHINE 2MG SYG) 1 mg Q4H PRN IVP SEVERE PAIN (7-10) 03/26/25 07:30 04/02/25 07:29 Nitroglycerin (Nitrostat) 0.4 mg PROTOCOL PRN SL CHEST PAIN 03/26/25 07:30 04/25/25 07:29 Ondansetron HCl (zoFRAN 4MG INJ) 4 mg Q6H PRN IV NAUSEA/VOMITING 03/26/25 07:30 04/25/25 07:29 Piperacillin Sod/ Tazobactam Sod 50 ml @ 12.5 mls/hr ZOSY8 IV 03/26/25 13:00 04/05/25 12:59 03/27/25 14:26 12.5 MLS/HR Potassium Chloride 100 ml @ 100 mls/hr AD PRN IV POTASSIUM PROTOCOL 03/26/25 07:30 04/25/25 07:29 03/27/25 07:14 100 MLS/HR Potassium Chloride (K-Dur/Klor-Con 20meq) 20 meq AD PRN PO POTASSIUM PROTOCOL 03/26/25 07:30 04/25/25 07:29 Potassium Chloride (KCl 10% Elixir 20meq/15ml) 20 meq AD PRN PO POTASSIUM PROTOCOL 03/26/25 07:30 04/25/25 07:29 Sodium Chloride 1,000 ml @ 100 mls/hr Q10H IV 03/26/25 07:30 03/27/25 08:16 DC 03/26/25 20:48 100 MLS/HR Zolpidem Tartrate (AmbIEN) 5 mg HS PRN PO INSOMNIA 03/26/25 07:30 04/25/25 07:29 DIAGNOSTICS / RADIOLOGY: [place] [id number] [id number] IMAGING REPORT Signed PATIENT: CECILLE GUTIERREZ MR#: [id number] : 2005 SEX: F AGE: 20 LOCATION: [facility] ORDER 7 STATUS: ADM IN REPORT#: [id number] SERVICE 5 REASON: congestion ORDERING PHYSICIAN: MARILYN MCCORMACK PLASTIC PROCESS TECHNICIAN PROCEDURE: CXR1VW - CHEST 1VW EXAM: CR Chest, 1 View. CLINICAL HISTORY: congestion COMPARISON: None provided. FINDINGS: LUNGS: The lungs show no infiltrate or other acute finding. PLEURAL SPACES: No evidence of pleural effusion or pneumothorax. MEDIASTINUM: Cardiac size and mediastinal contours within normal limits. BONES: No aggressive appearing osseous lesion seen. IMPRESSION: No acute cardiopulmonary pathology is evident. /Verbena DICTATED BY: LINDA BRO MD DATE: 03/26/25924 ELECTRONICALLY SIGNED BY: LINDA BRO MD DATE: 03/26/25924 [place] [address] [id number] IMAGING REPORT Signed PATIENT: CECILLE GUTIERREZ MR#: [id number] : 2005 SEX: F AGE: 20 LOCATION: [facility] ORDER 7 STATUS: ADM IN [facility] REPORT#: [id number] SERVICE 5 REASON: Enterocolitis, hepatic edema, possible hepatitis, pyelonephritis ORDERING PHYSICIAN: MARILYN MCCORMACK PLASTIC PROCESS TECHNICIAN PROCEDURE: ABDOMEN - US ABDOMINAL COMPLETE EXAMINATION: ULTRASOUND OF THE ABDOMEN (LIMITED) WITH COLOR DOPPLER. CLINICAL HISTORY: Enterocolitis. Hepatic edema. Possible hepatitis, pyelonephritis. COMPARISON: CT abdomen and pelvis with contrast from the same day. TECHNIQUE: Real-time grayscale ultrasound images of the abdomen. In addition, color Doppler is medically necessary to perform in order to evaluate vascularity and blood flow. FINDINGS: Liver: Normal in caliber, the right hepatic lobe measures 14.2 cm in the craniocaudal dimension. There is increased echogenicity of the hepatic parenchyma. There is no focal hepatic abnormality. There is normal spectral Doppler of the main portal vein (PSV is 16 cm/s). There is left intrahepatic biliary radical dilatation that measures 0.4 cm. Gallbladder: Within normal limits with normal wall thickness (0.2 cm). No hyperemia or pericholecystic free fluid. There is no cholelithiasis. Common bile duct is normal in caliber, measuring 0.3 cm. Spleen is normal in caliber and measures 9.4 x 2.6 x 2.2 cm in craniocaudal, AP and transverse dimensions respectively. No focal lesions. Pancreas: Normal in caliber and echotexture. No calcification or dilated pancreatic duct. The kidneys are normal in caliber, the right kidney measures 9.4 x 3.7 x 4.0 cm and the left kidney measures 9.3 x 4.8 x 5.3 cm in craniocaudal, AP, and transverse dimensions respectively. There is normal renal cortical thickness, and cortical echogenicity. There is no renal calculus or hydronephrosis. The proximal, mid, and distal aspects of abdominal aorta are normal in caliber measuring 1.6 cm, 1.5 cm, and 1.2 cm in the AP dimension respectively. Visualized aspects of the inferior vena cava are unremarkable. IMPRESSION: Hepatic steatosis. Dilated left intrahepatic biliary radical. Recommend MRCP. No significant changes. /Verbena DICTATED BY: LINDA BRO MD DATE: 03/27/25719 ELECTRONICALLY SIGNED BY: LINDA BRO MD DATE: 03/27/[address] [id number] IMAGING REPORT Signed PATIENT: CECILLE GUTIERREZ MR#: [id number] : 2005 SEX: F AGE: 20 LOCATION: [facility] ORDER 2 STATUS: REG REPORT#: [id number] SERVICE 1 REASON: vomitngs for the past 20 days, weight loss ORDERING PHYSICIAN: FERDINAND COBB MD PROCEDURE: ABD PEL W - CT ABDOMEN/PELVIS W/CONTRAST EXAM: CT Abdomen and Pelvis with IV contrast CLINICAL HISTORY: Vomiting for the past 20 days. Weight loss. TECHNIQUE: Thin collimated axial CT images of the abdomen and pelvis were obtained, with sagittal and coronal reformatted images also submitted. A CT scan is done according to ALARA (As Low As Reasonably Achievable). CONTRAST: Contrast information is not available. COMPARISON: None. FINDINGS: Unremarkable visualized lung parenchyma. No focal abnormality within the gallbladder, pancreas, spleen, or adrenals. There are multifocal wedge-shaped hypodensities in the right kidney on early postcontrast which which become homogeneous on delayed postcontrast phase, the largest focus measures up to 1.5 cm; the possibility of a mild form of acute pyelonephritis cannot be entirely excluded. Mild diffuse intrahepatic periportal edema. Diffuse mucosal thickening in the small and large bowel loops, concerning acute enterocolitis. Surgical sutures around the rectosigmoid area. Bowel loops are normal in caliber without evidence of obstruction or ileus. The appendix is normal. There is no abnormality within the urinary bladder. Unremarkable reproductive organs. Abdominal and pelvic vessels are patent. No lymphadenopathy. Minimal free fluid in the pelvis. There is no acute osseous abnormality. Bilateral chronic L5 spondylolysis with grade 1 anterior listhesis of L5 on S1. IMPRESSIONS: Acute enterocolitis. Mild diffuse intrahepatic periportal edema, concerning mild acute hepatitis. There are multifocal wedge-shaped hypodensities in the right kidney on early postcontrast which which become homogeneous on delayed postcontrast phase, the largest focus measures up to 1.5 cm; the possibility of a mild form of acute pyelonephritis cannot be entirely excluded. Minimal free fluid in the pelvis. There may be a possibility of hyponatremia. /Verbena DICTATED BY: SHALOM CAMPOS Jr., MD DATE: 03/26/25708 ELECTRONICALLY SIGNED BY: SHALOM CAMPOS Jr., MD DATE: 03/26/25708 ASSESSMENT: Rectal bleeding [ Gastroparesis POA Acute enterocolitis POA Lactose intolerance Intractable nausea and vomiting POA Intra hepatic periportal edema POA Possible acute hepatitis new diagnosis POA Acute pyelonephritis POA Severe malnutrition POA Hypertension POA Acute complicated cystitis POA Ulcerative colitis History of colon removed March 2024 History of partial rectum removal July 2024 J-pouch creation October 2024 ] PLAN: Rectal bleeding Recommended gastrointestinal evaluation to determine the cause of rectal bleeding Consider stool tests and possibly imaging studies or endoscopy Gastroparesis POA Acute enterocolitis POA [ Patient admitted echo surgical floor as inpatient GI consulted Dietary consulted for malnutrition NPO Intra hepatic periportal edema POA Possible acute hepatitis new diagnosis POA MRCP recommended Severe malnutrition Start patient on high-protein right Ulcerative colitis History of colon removed March 2024 History of partial rectum removal July 2024 J-pouch creation October 2024 ] General surgeon recommended due to history of multiple surgeries Lactose intolerance Change diet from full liquid to clear tight Zosyn prophylaxis Normal saline at 100 mL/hour UA positive for leukocytosis CT abdomen/pelvis showed acute enterocolitis, intrahepatic periportal edema, acute hepatitis, acute pyelonephriti Hyper hypoglycemia protocol Hypomagnesemia protocol Hypokalemia protocol PRN pain medications ATTESTATION BY PHYSICIAN I have seen and examined the patient. I reviewed the documentation, medical decision making, and treatment plan as noted by the mid-level provider above. I agree with the findings and plan of care. Pérez Eastman MD, HARSHA MD Mar 27, 2025 17:26
--- NOTE | 2025-03-27 17:27 | CONS ---
CONSULT NOTE: Consulting physician: Dr. Meyer Consulting service: General surgery Reason for consultation: Multiple abdominal surgeries with nausea and vomiting History of present illness: This is a 20-year-old female with a significant medical history with multiple abdominal surgeries consulted to surgery for evaluation of nausea and vomiting. Patient has had total colectomy in March of 2024 requiring multiple follow up surgeries with most recent in October of 2024 were ostomy was taken down. Due to concerns of continued nausea and vomiting patient presented to the hospital for further evaluation. Patient was taken for endoscopy yesterday with gastritis noted on biopsies taken. Patient overnight reporting a bloody bowel movement. This point in time WBCs 3.1 with a hemoglobin of 10.6. Patient with no significant abdominal discomfort. Patient is currently on clear liquid diet and tolerating. Medical history: History of ulcerative colitis Surgical history: See HPI Review of systems: General: No Fever, No Chills, No Night Sweats, No Fatigue, No Malaise, No Appetite, No Other HEENT: No Head Aches, No Visual Changes, No Eye Pain, No Ear Pain, No Dysphasia, No Sinus Congestion, No Post Nasal Drip, No Sore Throat, No Other Pulmonary: No Dyspnea, No Cough, No Pleuritic Chest Pain, No Other Cardiovascular: No: Chest Pain, Palpitations, Orthopnea, Paroxysmal No Dyspnea, Edema, Lt Headedness, Other Gastrointestinal: No: Nausea, Vomiting, Diarrhea, Constipation, Melena, Hematochezia, Other Genitourinary: No Dysuria, No Frequency, No Incontinence, No Hematuria, No Retention, No Other Musculoskeletal: No: other, neck pain, shoulder pain, arm pain, back pain, hand pain, leg pain, foot pain Skin: No Urticaria, No Rash, No Other Neurological: No: Weakness, Numbness, Incoordination, Change in speech, Confusion, Seizures, Other Physical exam: General: Awake alert and oriented Heart: Regular rate and rhythm} Lungs: Clear to auscultation no distress Abdomen: [Soft, nontender, nondistended Assessment: This is a 20-year-old female with gastroparesis and acute enterocolitis Plan: From surgical standpoint no immediate intervention planned Continue with GI recommendations Surgical team to follow patient closely Doctor Washington to be updated in patient's status and nursing to report any further acute events GAVIN WYATT Jr. Mar 27, 2025 17:27
[2025-03-28] VITALS (8 sets, daily range): BP systolic 97–116; BP diastolic 64–79; PULSE 56–80; RESP 16; TEMP 97.4–98; O2SAT 93–94
[2025-03-28 04:11] LABS: IMMATURE GRANULOCYTE ABSOLUTE 0.00 K/uL (0-1); NUCLEATED RED BLOOD CELLS 0.0 % (0.0-0.19); PLATELET COUNT (AUTO) 243 K/uL (130-400); RED BLOOD CELL COUNT(AUTO) 3.91 MIL/uL (4.00-5.50); RED CELL DISTRIBUTION WIDTH 13.2 % (11.0-15.5); WHITE BLOOD COUNT (AUTO) 2.9 K/uL (4.8-10.8)
[2025-03-28 04:27] LABS: CREATININE 0.5 mg/dL (0.5-1.0); GLOMERULAR FILTR. RATE CALC 137.0 mL/min (>90); GLUCOSE,RANDOM 83.0 mg/dL (70-105); SODIUM SERUM 138.0 mmol/L (136-145); UREA NITROGEN, BLOOD 1.0 mg/dL (7-18)
[2025-03-28 05:03] LABS: BAND NEUTROPHILS % (MANUAL) 1 % (0-2); EOSINOPHILS % (MANUAL) 4 % (1-6); LYMPHOCYTES % (MANUAL) 50 % (22-44); MAN.DIFF COMMENT-IMPRESSION MANUAL DIF; MONOCYTES % (MANUAL) 6 % (2-9); PLATELET MORPHOLOGY COMMENT ADEQUATE; SEGMENTED NEUTROPHILS % 39 % (40-70)
--- NOTE | 2025-03-28 07:40 | HMCIMG ---
EXAM: MRCP CLINICAL HISTORY: Dilated left intrahepatic biliary radical. COMPARISON: CT abdomen and pelvis and ultrasound abdomen dated March 26, 2025. CONTRAST: Not applicable. TECHNIQUE: Multisequence, multiplanar MRCP was performed without intravenous contrast. Sagittal and coronal reformatted images submitted for interpretation. FINDINGS: LIVER: Unremarkable. No focal hepatic lesions. GALLBLADDER AND BILE DUCTS: The gallbladder and biliary ducts are unremarkable. No gallstones or biliary ductal dilatation. PANCREAS: The pancreas is unremarkable. No ductal dilation. SPLEEN: The spleen is unremarkable. STOMACH AND BOWEL: No acute bowel process identified on limited evaluation. ADRENALS: The adrenal glands are unremarkable. KIDNEYS: The kidneys are unremarkable. No hydronephrosis or masses. LYMPH NODES: No lymphadenopathy. IMPRESSION: No biliary ductal dilatation. No gallstones. No pancreatic abnormality. /Araceli
[2025-03-28] MEDS ORDERED: M.V.I. IV [ADULT] 10 ML, FOLic ACID 5 MG/ML VIAL 1 MG, THIAMINE HCL 100 MG in 0.9%NACL ... IV SCH (09:00)
[2025-03-28] MEDS ORDERED: COMPOUND IV REFRIGERATED 1 EACH IVSOLN MISC PRN (09:00)
[2025-03-28] MEDS: PoTASSium chloRIDE 20MEQ ER 20 MEQ ERTAB PO ONE (09:27)
[2025-03-28] MEDS: THIAMINE HCL 100 MG/ML 2ML VIAL IVP ONE (09:28)
[2025-03-28] MEDS: MAGNESIUM OXIDE 400 MG TABLET PO ONE (09:28)
[2025-03-28] MEDS: FOLic ACID 5 MG/ML VIAL 1 MG, THIAMINE HCL 100 MG in 0.9%NACL 1000ML 1,000 ML IV SCH (10:46)
--- NOTE | 2025-03-28 11:21 | PN ---
This is a 20-year-old female with concerns of nausea and vomiting with potential rectal bleeding Interval history: This 20-year-old female seen in her room resting Patient on clear liquid diet and tolerating with no reports of nausea or vomiting Patient reports no bloody bowel movements since the day before Hemoglobin remained stable Case discussed with GI team for concerns of possible pouchitis Physical exam General: Awake alert and oriented Heart: Regular rate and rhythm} Lungs: Clear to auscultation no distress Abdomen: [Soft, nontender, nondistended Assessment : This is a 20-year-old female with concerns of possible pouchitis versus inflammatory process Plan: From surgical standpoint no surgical interventions planned Possible consideration for flex sigmoid to rule out any potential inflammatory process Patient to remain on clear liquid diet Doctor Felix to be updated in patient's status and surgical team to be updated with any further acute events Vitals/Labs Vital Signs Date Time Temp Pulse Resp B/P (MAP) Pulse Ox O2 Delivery O2 Flow Rate FiO2 03/28/25 08:03 97.3 56 16 99/64 94 Room Air 03/27/25 20:00 0 21 Laboratory Tests 03/27/25 15:02 03/28/25 03:36 Medications Current Medications Sodium Chloride 1,000 ml @ 0 mls/hr ONCE ONCE IV Last administered on 03/26/25at 02:36; Start 03/26/25 at 02:30; Stop 03/26/25 at 02:31; Status DC Ondansetron HCl 4 mg ONCE ONCE IVP Last administered on 03/26/25at 02:36; Start 03/26/25 at 02:30; Stop 03/26/25 at 02:31; Status DC Pantoprazole Sodium 40 mg ONCE ONCE IVP Last administered on 03/26/25at 02:36; Start 03/26/25 at 02:30; Stop 03/26/25 at 02:31; Status DC Iohexol 75 ml STK-MED ONCE IV; Start 03/26/25 at 05:01; Stop 03/26/25 at 05:01; Status DC Piperacillin Sod/ Tazobactam Sod 3.375 gm ONCE ONCE IV Last administered on 03/26/25at 06:52; Start 03/26/25 at 06:30; Stop 03/26/25 at 06:31; Status DC Insulin Human Regular INSULIN SLIDING SCAL... ACHS SQ; Start 03/26/25 at 07:30; Stop 04/25/25 at 07:29 Dextrose 50 ml AD PRN IV Last administered on 03/27/25at 05:31; Start 03/26/25 at 07:30; Stop 04/25/25 at 07:29 Glucagon 1 mg AD PRN IM; Start 03/26/25 at 07:30; Stop 04/25/25 at 07:29 Potassium Chloride 100 ml @ 100 mls/hr AD PRN IV Last administered on 03/28/25at 04:42; Start 03/26/25 at 07:30; Stop 04/25/25 at 07:29 Potassium Chloride 20 meq AD PRN PO; Start 03/26/25 at 07:30; Stop 04/25/25 at 07:29 Potassium Chloride 20 meq AD PRN PO; Start 03/26/25 at 07:30; Stop 04/25/25 at 07:29 Magnesium Sulfate 50 ml @ 0 mls/hr PROTOCOL PRN IV; Start 03/26/25 at 07:30; Stop 04/25/25 at 07:29 Diphenhydramine HCl 25 mg Q6H PRN IV; Start 03/26/25 at 07:30; Stop 04/25/25 at 07:29 Acetaminophen 650 mg Q6H PRN PO; Start 03/26/25 at 07:30; Stop 04/25/25 at 07:29 Acetaminophen 650 mg Q4H PRN PO; Start 03/26/25 at 07:30; Stop 04/25/25 at 07:29 Ondansetron HCl 4 mg Q6H PRN IV; Start 03/26/25 at 07:30; Stop 04/25/25 at 07:29 Zolpidem Tartrate 5 mg HS PRN PO; Start 03/26/25 at 07:30; Stop 04/25/25 at 07:29 Al Hydroxide/Mg Hydroxide 30 ml Q6H PRN PO; Start 03/26/25 at 07:30; Stop 04/25/25 at 07:29 Lactulose 20 gm BID PRN PO; Start 03/26/25 at 07:30; Stop 04/25/25 at 07:29 Nitroglycerin 0.4 mg PROTOCOL PRN SL; Start 03/26/25 at 07:30; Stop 04/25/25 at 07:29 Guaifenesin/ Dextromethorphan 10 ml Q4H PRN PO; Start 03/26/25 at 07:30; Stop 04/25/25 at 07:29 Famotidine 20 mg BID PRN IV; Start 03/26/25 at 07:30; Stop 04/25/25 at 07:29 Acetaminophen 650 mg Q6H PRN PO; Start 03/26/25 at 07:30; Stop 03/26/25 at 07:22; Status DC Ketorolac Tromethamine 15 mg Q8H PRN IV; Start 03/26/25 at 07:30; Stop 03/27/25 at 08:16; Status DC Morphine Sulfate 1 mg Q4H PRN IVP; Start 03/26/25 at 07:30; Stop 04/02/25 at 07:29 Piperacillin Sod/ Tazobactam Sod 50 ml @ 12.5 mls/hr [id number] IV Last administered on 03/28/25at 05:57; Start 03/26/25 at 13:00; Stop 04/05/25 at 12:59 Sodium Chloride 1,000 ml @ 100 mls/hr Q10H IV Last administered on 03/26/25at 20:48; Start 03/26/25 at 07:30; Stop 03/27/25 at 08:16; Status DC Hydralazine HCl 10 mg Q6H PRN IV; Start 03/26/25 at 07:30; Stop 04/25/25 at 07:29 Dextrose/Sodium Chloride 1,000 ml @ 75 mls/hr [id number] IV Last administered on 03/28/25at 10:51; Start 03/27/25 at 08:30; Stop 04/26/25 at 08:29 Propofol 200 mg STK-MED ONCE IV; Start 03/27/25 at 11:31; Stop 03/27/25 at 11:31; Status DC Magnesium Oxide 400 mg ONCE ONCE PO Last administered on 03/28/25at 09:28; Start 03/28/25 at 09:00; Stop 03/28/25 at 09:01; Status DC Potassium Chloride 40 meq ONCE ONCE PO Last administered on 03/28/25at 09:27; Start 03/28/25 at 09:00; Stop 03/28/25 at 09:01; Status DC Multivitamins/ Minerals 10 ml/ Folic Acid 1 mg/ Thiamine HCl 100 mg/Sodium Chloride 1,010 ml @ 70 mls/hr DAILY IV; Start 03/28/25 at 09:00; Stop 03/28/25 at 08:50; Status DC Thiamine HCl 100 mg ONCE ONCE IVP Last administered on 03/28/25at 09:28; Start 03/28/25 at 09:00; Stop 03/28/25 at 09:01; Status DC Folic Acid 1 mg/ Thiamine HCl 100 mg/Sodium Chloride 1,010 ml @ 70 mls/hr DAILY IV Last administered on 03/28/25at 10:46; Start 03/28/25 at 09:00; Stop 03/30/25 at 23:26 GAVIN WYATT Jr. Mar 28, 2025 11:20
--- NOTE | 2025-03-28 12:46 | CONS ---
GASTROENTEROLOGY CONSULTATION NOTE Date of Consultation: Mar 28, 2025 Time of Consultation: 12:44 History of Present Illness: [Patient initially presented to ER with c/o vomiting for 20 days. Patient reported she was evaluated by a physician in [place] and was told she had a slow digestion. Patient underwent an EGD on 03/27/25 which showed normal esophagus, normal examined duodenum, and chronic gastritis. Patient now reporting hematochezia. Patient reported having had several surgeries in 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 She underwent a second surgery to create a Jpouch in July 2024, and states she had reversal of ileostomy on 10/01/24 but had to have a revision of anastomosis on 10/03/24. Patient reports she has been treated with mesalamine suppositories in December and in January d/t hematochezia. Recommendations for pouchoscopy given d/t hematochezia and need to assess for any pouchitis and any other pathology. All her questions and parent's questions were answered to their satisfaction. Patient agreed to proceed. ] Review of Systems: CONSTITUTIONAL: No malaise or change in sensation of wellbeing. ENMT: No rhinorrhea, otorrhea, sinus pain, ear ache. CARDIOVASCULAR: No angina, palpitations, orthopnea or paroxysmal dyspnea. RESPIRATORY: No SOB. GASTROINTESTINAL: No abdominal pain, nausea, vomiting, diarrhea, hematemesis, melena or change in the patient's habitual bowel movements consistency/number. GENITOURINARY: No dysuria, hematuria or change in bladder continence. MUSCULOSKELETAL: No new muscle pain or decrease in muscular strength. No new joint swelling, redness or tenderness. SKIN: No new rash. Past Medical History: [ Ulcerative colitis ] PAST SURGICAL HISTORY: [ : Removed March 2024, partial rectal removed July 2024. J pouch creation October 2024. All the surgeries we will performed in [facility] ] PAST SOCIAL HISTORY: [ Patient denies smoking. Patient denies any drug illicit. Patient denies any alcohol illicit ] FAMILY HISTORY: [ Patient lives at home with the family] Uncoded Allergies: Uncoded Allergies: ' PROMOTIL ' (Allergy, Unknown, 03/26/25) Physical Exam: GEN: Awake, alert, oriented in person, time and place, and in no acute distress. HEENT: . No rhinorrhea. Oral pharyngeal mucosa is pink, moist and within normal limits. CHEST: Inspection, palpation and percussion of the chest were unremarkable. Lung auscultation revealed normal breath sounds bilaterally. CARDIAC: PMI is within normal limits. Heart sounds are regular. ABD: Soft, non-tender and not distended. No peritoneal signs on palpation. No organomegaly. Normal bowel sounds. EXT: No cyanosis or clubbing. No edema. SKIN: Intact. No rashes. JOINTS: No evidence of synovitis or acute arthritis. NEURO: Alert and oriented to name, place and person. No focal motor deficits. Normal speech. Strength is normal. Vital Sign (Last 24 Hours) 03/27/25 03/28/25 20:00 11:37 Temp 97.3 Pulse 64 Resp 16 B/P (MAP) 97/65 Pulse Ox 99 O2 Delivery Room Air O2 Flow Rate 0 FiO2 21 Intake & Output (last 24hrs) 03/27/25 03/27/25 03/28/25 15:00 23:00 07:00 Intake Total 800 ml Balance 800 ml Laboratory: [ ] Laboratory: Test 03/28/25 11:08 03/28/25 03:36 03/27/25 10:34 03/27/25 08:47 Range/Units Whole Blood Glucose 81 70-110 MG/DL White Blood Count 2.9 L 4.8-10.8 K/uL Red Blood Count 3.91 L 4.00-5.50 MIL/uL Hemoglobin 11.0 #L 12.0-16.0 g/dL Hematocrit 33.7 #L 36-48 % Mean Corpuscular Volume 86.2 80-100 fL Mean Corpuscular Hemoglobin 28.1 27.0-33.0 pg Mean Corpuscular Hemoglobin Concent 32.6 32.0-36.0 g/dL Red Cell Distribution Width 13.2 11.0-15.5 % Platelet Count 243 130-400 K/uL Mean Platelet Volume 10.0 7.5-10.5 fL Immature Granulocyte % (Auto) 0.0 0-1 % Neutrophils (%) (Auto) 50.5 40.0-77.0 % Lymphocytes (%) (Auto) 37.2 21.0-51.0 % Monocytes (%) (Auto) 6.3 3.0-13.0 % Eosinophils (%) (Auto) 4.9 0.0-8.0 % Basophils (%) (Auto) 1.1 0.0-5.0 % Neutrophils # (Auto) 1.4 L 1.8-7.7 K/uL Lymphocytes # (Auto) 1.1 1.0-4.8 K/uL Monocytes # (Auto) 0.2 0.1-1.0 K/uL Eosinophils # (Auto) 0.14 0.00-0.70 K/uL Basophils # (Auto) 0.03 0.00-0.20 K/uL Absolute Immature Granulocyte (auto 0.00 0-1 K/uL Segmented Neutrophils % 39 L 40-70 % Band Neutrophils % 1 0-2 % Lymphocytes % (Manual) 50 H 22-44 % Monocytes % (Manual) 6 2-9 % Eosinophils % (Manual) 4 1-6 % Nucleated Red Blood Cells 0.0 0.0-0.19 % Differential Comment MANUAL DIF White Cell Morphology Comment Platelet Morphology Comment ADEQUATE Red Blood Cell Morphology HYPOCHROM CELLS 1+ Sodium Level 138 136-145 mmol/L Potassium Level 2.8 *L 3.5-5.1 mmol/L Chloride Level 103 101-111 mmol/L Carbon Dioxide Level 24 21-32 mmol/L Blood Urea Nitrogen 1 L 7-18 mg/dL Creatinine 0.5 0.5-1.0 mg/dL Glomerular Filtration Rate Calc 137 >90 mL/min Random Glucose 83 70-105 mg/dL Total Calcium 8.2 L 8.5-10.1 mg/dL Bedside Glucose Comment Notified Nurse Whole Blood Ketones Quantitative 0.9 H 0.0-0.6 mmol/L Test 03/27/25 05:00 Range/Units Lactic Acid Level 0.9 0.8-2.5 mmol/L Magnesium Level 1.80 1.80-2.40 mg/dL Total Bilirubin 0.8 0.2-1.0 mg/dL Direct Bilirubin 0.2 0.0-0.3 mg/dL Aspartate Amino Transf (AST/SGOT) 16 10-37 U/L Alanine Aminotransferase (ALT/SGPT) 21 12-78 U/L Alkaline Phosphatase 80 50-136 U/L Ammonia 12 11-32 umol/L Total Creatine Kinase 146 21-232 U/L B-Type Natriuretic Peptide 9 0-100 pg/mL Total Protein 5.8 L 6.0-8.3 g/dL Albumin 2.7 L 3.5-5.0 g/dL Amylase Level 24 L 25-115 U/L Lipase 38 16-77 U/L Vitamin B12 Level 1051 H 193-986 pg/mL Procalcitonin < 0.05 L 0.05-0.5 ng/mL Thyroid Stimulating Hormone (TSH) 2.14 # 0.36-3.74 uIU/mL Free Thyroxine (T4) Direct 1.26 0.76-1.46 ng/dL Current Medications Medications (Trade) Dose Ordered Sig/Baljit Route PRN Reason Start Time Stop Time Status Last Admin Dose Admin Acetaminophen (TYLenol 325MG TAB) 650 mg Q4H PRN PO MILD PAIN (1-3) 03/26/25 07:30 04/25/25 07:29 Acetaminophen (TYLenol 325MG TAB) 650 mg Q6H PRN PO MILD PAIN (1-3) 03/26/25 07:30 03/26/25 07:22 DC Acetaminophen (TYLenol 325MG TAB) 650 mg Q6H PRN PO TEMPERATURE GREATER THAN 101.5 03/26/25 07:30 04/25/25 07:29 Al Hydroxide/Mg Hydroxide (MAALox PLUS 30ML) 30 ml Q6H PRN PO INDIGESTION 03/26/25 07:30 04/25/25 07:29 Dextrose (D50w) 50 ml AD PRN IV HYPOGLYCEMIA PROTOCOL 03/26/25 07:30 04/25/25 07:29 03/27/25 05:31 50 ML Dextrose/Sodium Chloride 1,000 ml @ 75 mls/hr [id number] IV 03/27/25 08:30 04/26/25 08:29 03/28/25 10:51 75 MLS/HR Diphenhydramine HCl (BENAdryl INJ) 25 mg Q6H PRN IV SEVERE ITCHING/RASH 03/26/25 07:30 04/25/25 07:29 Famotidine (Pepcid 20mg Vial) 20 mg BID PRN IV NAUSEA/VOMITING 03/26/25 07:30 04/25/25 07:29 Folic Acid 1 mg/ Thiamine HCl 100 mg/Sodium Chloride 1,010 ml @ 70 mls/hr DAILY IV 03/28/25 09:00 03/30/25 23:26 03/28/25 10:46 70 MLS/HR Glucagon (Glucagon 1mg Kit) 1 mg AD PRN IM HYPOGLYCEMIA PROTOCOL 03/26/25 07:30 04/25/25 07:29 Guaifenesin/ Dextromethorphan (RobiTUSSin DM 200/20MG 10ML) 10 ml Q4H PRN PO COUGH 03/26/25 07:30 04/25/25 07:29 Hydralazine HCl (APRESOLine 20MG INJ) 10 mg Q6H PRN IV For:SBP above 160;DBP above 90 03/26/25 07:30 04/25/25 07:29 Insulin Human Regular (humuLIN R 100 UNIT/ML 3ML) INSULIN SLIDING SCAL... ACHS SQ 03/26/25 07:30 04/25/25 07:29 Ketorolac Tromethamine (toRADol) 15 mg Q8H PRN IV MODERATE PAIN (4-6) 03/26/25 07:30 03/27/25 08:16 DC Lactulose (Constulose 20gm/ 30ml Udcup) 20 gm BID PRN PO CONSTIPATION 03/26/25 07:30 04/25/25 07:29 Magnesium Sulfate 50 ml @ 0 mls/hr PROTOCOL PRN IV OTHER [SEE ORDER COMMENTS] 03/26/25 07:30 04/25/25 07:29 Morphine Sulfate (morPHINE 2MG SYG) 1 mg Q4H PRN IVP SEVERE PAIN (7-10) 03/26/25 07:30 04/02/25 07:29 Multivitamins/ Minerals 10 ml/ Folic Acid 1 mg/ Thiamine HCl 100 mg/Sodium Chloride 1,010 ml @ 70 mls/hr DAILY IV 03/28/25 09:00 03/28/25 08:50 DC Nitroglycerin (Nitrostat) 0.4 mg PROTOCOL PRN SL CHEST PAIN 03/26/25 07:30 04/25/25 07:29 Ondansetron HCl (zoFRAN 4MG INJ) 4 mg Q6H PRN IV NAUSEA/VOMITING 03/26/25 07:30 04/25/25 07:29 Piperacillin Sod/ Tazobactam Sod 50 ml @ 12.5 mls/hr [id number] IV 03/26/25 13:00 04/05/25 12:59 03/28/25 05:57 12.5 MLS/HR Potassium Chloride 100 ml @ 100 mls/hr AD PRN IV POTASSIUM PROTOCOL 03/26/25 07:30 04/25/25 07:29 03/28/25 04:42 100 MLS/HR Potassium Chloride (K-Dur/Klor-Con 20meq) 20 meq AD PRN PO POTASSIUM PROTOCOL 03/26/25 07:30 04/25/25 07:29 Potassium Chloride (KCl 10% Elixir 20meq/15ml) 20 meq AD PRN PO POTASSIUM PROTOCOL 03/26/25 07:30 04/25/25 07:29 Sodium Chloride 1,000 ml @ 100 mls/hr Q10H IV 03/26/25 07:30 03/27/25 08:16 DC 03/26/25 20:48 100 MLS/HR Zolpidem Tartrate (AmbIEN) 5 mg HS PRN PO INSOMNIA 03/26/25 07:30 04/25/25 07:29 Diagnostics / Radiology: [COPY/PASTE HERE IF NO REPORTS PLEASE DELETE SECTION] Assessment: [Hematochezia Crohns Plan: Case discussed with Dr. Ashford [Clear liquid diet today Npo after midnight Plan for pouchoscopy in am. Information on procedure with risks and benefits explained to patient and parents. All their questions were answered and they agreed to proceed with exam. Please call with questions, concerns and change in clinical status Thank you for this consult. ] ALETHEA CHASE DEBURR TECHNICIAN Mar 28, 2025 12:46
[2025-03-28] MEDS ORDERED: PANT40TA54 PO (14:52)
--- NOTE | 2025-03-28 17:31 | PN ---
[facility] PROGRESS NOTE Date of Service: Mar 28, 2025 Time of Service: 17:22 SUBJECTIVE: Patient is 20 years female with a past medical history of ulcerative colitis s/p colon removal March 2024, partial rectal removal July 2024 followed by creation of J-pouch October 2024 in [facility], who came to emergency department with a complaint of nausea, vomiting for the past 20 days. Patient also stated that she lost about4 to 5 kg in the time as well. Family members/mother at the bedside. Per patient anything she would drink or eat she can not hold it and within an hour she would vomit everything. Patient denies any abdominal pain. Most recent vital signs 98.1 Pulse 79 respiration 15 blood pressure 110/57 influenza A negative influenza B negative COVID negative. UA positive for leukocytosis. Toxicology negative. Sodium 136 potassium 4.3 CO2 28 BUN 8 creatinine 0.8 GFR 107 lipase 45 hCG negative . WBC 7.7 Hemoglobin 14.9 hematocrit 44.[address] abdomen/pelvis showed acute enterocolitis, intrahepatic periportal edema. Possible acute hepatitis. Acute pyelonephritis. Chest x-ray negative. Patient will be admitted under hospitalist care for further evaluation/recommendation. GI will be consulted for further plan and recommendations. Dietary consultation will be provided to patient for severe malnutrition. A.m. labs. 03/27/2025: The patient is seen in the room [id number]. She is awake, alert, orientedx3. Today the patient reported experiencing rectal bleeding during bowel movements in the morning. The patient described no associated pain but noted a sensation s, which lasted of urge defecate which lasted about 6-7 minutes. The patient experienced nausea for the past 20 days and reported vomiting up to 4 times a day while at home, with the vomit sometimes being green. The patient did not report any abdominal pain, diarrhea, constipation chills, fever, urinary symptoms during urination. The patient noted a decreased appetite and weight loss since surgery in March 2024, presenting in a weight loss of about 16-17 kg. The patient has been experiencing increased stool frequency and urgency, going to the restroom up to 9 times per day, and this condition improved by December and January 2025. EGD was done and revealed normal esophagus normal duodenum, patchy moderate inflammation characterized by congestion and erythema was found in the entire examined stomach. General surgery recommendation was given. Patient changed from full liquid diet to clear diet. Patient has been identified as lactose intolerant. MRCP recommendation was given due to a dilated biliary duct. Keep the patient on NPO on the midnight before MRCP procedure. Her vitals are normal. Labs show WBC trending from 7.7 to 3.1, RBC trending down from 5.23 To 3.75, hemoglobin 10.6, hematocrit 33.0. Chemistry revealed ketones. She has severe protein calorie malnutrition. 03/28/2025: The patient is seen in the room for 401. She is awake, alert, oriented x3. general surgeon recommended to follow the GI recommendations. Director Teen [facility] planned for colonoscopy tomorrow a.m. insert normal except temperature 97.3. Labs revealed WBC 2.9, RBC 3.9, hemoglobin 11.0, hematocrit 33.7. Sodium 138, potassium 2.8, [id number], bicarbonate 24. The patient reported no current pain or blood in the stool. The patient mentioned no episodes of vomiting or nausea. The patient expressed anticipation for updates from doctors regarding potential procedures or tests to determine the source and the cause of the previous bleeding. The patient was maintained on a clear liquid diet. The patient was informed about the current current plan and the reassured that the updates will be provided. The patient will be remained under observation awaiting further evaluation and treatment decisions. MRCP revealed no significant abnormality. REVIEW OF SYSTEMS CONSTITUTIONAL: Denies fevers, chills, or night sweats. No unintentional weight loss reported. NEUROLOGICAL: Denies headache, amaurosis fugax, motor weakness, sensory deficit, vertigo/spinning sensation, gait abnormalities, or tremors. ENT: No hearing loss, otalgia, otorrhea, rhinitis, rhinorrhea, hoarseness, or sore throat. CARDIOVASCULAR: Denies any exertional angina, dyspnea on exertion, orthopnea, paroxysmal nocturnal dyspnea, palpitations, life-threatening arrhythmias, claudication. PULMONARY: Denies any shortness of breath, cough, phlegm/sputum, hemoptysis, pleuritic chest pain. SLEEP: Denies morning headaches, daytime somnolence or napping. Denies diff iculty falling asleep, staying asleep, waking from sleep. Denies knowledge of snoring. GASTROINTESTINAL: Denies any type of dysphagia to either liquids or solids. Denies pyrosis, early satiety, abdominal pain, diarrhea, constipation, or changes in stool consistency or caliber. Denies coffee-ground emesis, hematemesis, hematochezia, or melanotic stools. Severe nausea and vomiting GENITOURINARY: Denies frequency, urgency, nocturia, hematuria or incontinence (Storage/Irritative symptoms.) Low urinary stream, straining to void, urinary intermittency or hesitancy, splitting of the voiding stream, terminal dribbling. ENDOCRINOLOGIC: Denies polyuria, polydipsia, polyphagia or heat/cold intolerances. HEMATOLOGIC: Denies thrombophilia/previous clots, or coagulopathy/bleeding disorders. ONCOLOGIC: Denies personal history of malignancy. DERMATOLOGIC: Denies rashes or pruritus. PSYCHIATRIC: Denies any suicidal or homicidal ideation. Denies hallucinations. PHYSICAL EXAM GENERAL APPEARANCE: The patient is awake, alert, and oriented, in no acute cardiopulmonary distress. NEUROLOGICAL: Cranial nerves II-XII grossly intact. Motor is 5/5 in bilateral upper and lower extremities proximal to distal. No sensory deficits. HEENT: Face is symmetric. Pupils are equal and reactive. Extraocular movements are intact. NECK: Supple. No JVD. No thyromegaly. No submental, submandibular, pre- /postauricular, occipital or supraclavicular lymphadenopathy. CHEST: Normal chest expansion. No Telemetry. LUNGS: Absence of any rales, rhonchi or any wheezing. CARDIOVASCULAR: Regular. S1 and S2 normal. No appreciable rubs, murmurs or gallops. ABDOMEN: Soft, nontender, and nondistended. There is no rebound, voluntary guarding, or rigidity. : Deferred. No Milligan. EXTREMITIES: Non-edematous and not cyanotic. No clubbing. Good capillary refill. SKIN: No skin breakdown. Vital Signs (last 8hr) Date Time Temp Pulse Resp B/P (MAP) Pulse Ox O2 Delivery O2 Flow Rate FiO2 03/28/25 11:37 97.3 64 16 97/65 99 Room Air LABS: Laboratory: Test 03/28/25 11:08 03/28/25 03:36 03/27/25 10:34 03/27/25 08:47 Range/Units Whole Blood Glucose 81 70-110 MG/DL White Blood Count 2.9 L 4.8-10.8 K/uL Red Blood Count 3.91 L 4.00-5.50 MIL/uL Hemoglobin 11.0 #L 12.0-16.0 g/dL Hematocrit 33.7 #L 36-48 % Mean Corpuscular Volume 86.2 80-100 fL Mean Corpuscular Hemoglobin 28.1 27.0-33.0 pg Mean Corpuscular Hemoglobin Concent 32.6 32.0-36.0 g/dL Red Cell Distribution Width 13.2 11.0-15.5 % Platelet Count 243 130-400 K/uL Mean Platelet Volume 10.0 7.5-10.5 fL Immature Granulocyte % (Auto) 0.0 0-1 % Neutrophils (%) (Auto) 50.5 40.0-77.0 % Lymphocytes (%) (Auto) 37.2 21.0-51.0 % Monocytes (%) (Auto) 6.3 3.0-13.0 % Eosinophils (%) (Auto) 4.9 0.0-8.0 % Basophils (%) (Auto) 1.1 0.0-5.0 % Neutrophils # (Auto) 1.4 L 1.8-7.7 K/uL Lymphocytes # (Auto) 1.1 1.0-4.8 K/uL Monocytes # (Auto) 0.2 0.1-1.0 K/uL Eosinophils # (Auto) 0.14 0.00-0.70 K/uL Basophils # (Auto) 0.03 0.00-0.20 K/uL Absolute Immature Granulocyte (auto 0.00 0-1 K/uL Segmented Neutrophils % 39 L 40-70 % Band Neutrophils % 1 0-2 % Lymphocytes % (Manual) 50 H 22-44 % Monocytes % (Manual) 6 2-9 % Eosinophils % (Manual) 4 1-6 % Nucleated Red Blood Cells 0.0 0.0-0.19 % Differential Comment MANUAL DIF White Cell Morphology Comment Platelet Morphology Comment ADEQUATE Red Blood Cell Morphology HYPOCHROM CELLS 1+ Sodium Level 138 136-145 mmol/L Potassium Level 2.8 *L 3.5-5.1 mmol/L Chloride Level 103 101-111 mmol/L Carbon Dioxide Level 24 21-32 mmol/L Blood Urea Nitrogen 1 L 7-18 mg/dL Creatinine 0.5 0.5-1.0 mg/dL Glomerular Filtration Rate Calc 137 >90 mL/min Random Glucose 83 70-105 mg/dL Total Calcium 8.2 L 8.5-10.1 mg/dL Bedside Glucose Comment Notified Nurse Whole Blood Ketones Quantitative 0.9 H 0.0-0.6 mmol/L Test 03/27/25 05:00 Range/Units Lactic Acid Level 0.9 0.8-2.5 mmol/L Magnesium Level 1.80 1.80-2.40 mg/dL Total Bilirubin 0.8 0.2-1.0 mg/dL Direct Bilirubin 0.2 0.0-0.3 mg/dL Aspartate Amino Transf (AST/SGOT) 16 10-37 U/L Alanine Aminotransferase (ALT/SGPT) 21 12-78 U/L Alkaline Phosphatase 80 50-136 U/L Ammonia 12 11-32 umol/L Total Creatine Kinase 146 21-232 U/L B-Type Natriuretic Peptide 9 0-100 pg/mL Total Protein 5.8 L 6.0-8.3 g/dL Albumin 2.7 L 3.5-5.0 g/dL Amylase Level 24 L 25-115 U/L Lipase 38 16-77 U/L Vitamin B12 Level 1051 H 193-986 pg/mL Procalcitonin < 0.05 L 0.05-0.5 ng/mL Thyroid Stimulating Hormone (TSH) 2.14 # 0.36-3.74 uIU/mL Free Thyroxine (T4) Direct 1.26 0.76-1.46 ng/dL Current Medications Medications (Trade) Dose Ordered Sig/Baljit Route PRN Reason Start Time Stop Time Status Last Admin Dose Admin Acetaminophen (TYLenol 325MG TAB) 650 mg Q4H PRN PO MILD PAIN (1-3) 03/26/25 07:30 04/25/25 07:29 Acetaminophen (TYLenol 325MG TAB) 650 mg Q6H PRN PO MILD PAIN (1-3) 03/26/25 07:30 03/26/25 07:22 DC Acetaminophen (TYLenol 325MG TAB) 650 mg Q6H PRN PO TEMPERATURE GREATER THAN 101.5 03/26/25 07:30 04/25/25 07:29 Al Hydroxide/Mg Hydroxide (MAALox PLUS 30ML) 30 ml Q6H PRN PO INDIGESTION 03/26/25 07:30 04/25/25 07:29 Dextrose (D50w) 50 ml AD PRN IV HYPOGLYCEMIA PROTOCOL 03/26/25 07:30 04/25/25 07:29 03/27/25 05:31 50 ML Dextrose/Sodium Chloride 1,000 ml @ 75 mls/hr [id number] IV 03/27/25 08:30 04/26/25 08:29 03/28/25 10:51 75 MLS/HR Diphenhydramine HCl (BENAdryl INJ) 25 mg Q6H PRN IV SEVERE ITCHING/RASH 03/26/25 07:30 04/25/25 07:29 Famotidine (Pepcid 20mg Vial) 20 mg BID PRN IV NAUSEA/VOMITING 03/26/25 07:30 04/25/25 07:29 Folic Acid 1 mg/ Thiamine HCl 100 mg/Sodium Chloride 1,010 ml @ 70 mls/hr DAILY IV 03/28/25 09:00 03/30/25 23:26 03/28/25 10:46 70 MLS/HR Glucagon (Glucagon 1mg Kit) 1 mg AD PRN IM HYPOGLYCEMIA PROTOCOL 03/26/25 07:30 04/25/25 07:29 Guaifenesin/ Dextromethorphan (RobiTUSSin DM 200/20MG 10ML) 10 ml Q4H PRN PO COUGH 03/26/25 07:30 04/25/25 07:29 Hydralazine HCl (APRESOLine 20MG INJ) 10 mg Q6H PRN IV For:SBP above 160;DBP above 90 03/26/25 07:30 04/25/25 07:29 Insulin Human Regular (humuLIN R 100 UNIT/ML 3ML) INSULIN SLIDING SCAL... ACHS SQ 03/26/25 07:30 04/25/25 07:29 Ketorolac Tromethamine (toRADol) 15 mg Q8H PRN IV MODERATE PAIN (4-6) 03/26/25 07:30 03/27/25 08:16 DC Lactulose (Constulose 20gm/ 30ml Udcup) 20 gm BID PRN PO CONSTIPATION 03/26/25 07:30 04/25/25 07:29 Magnesium Sulfate 50 ml @ 0 mls/hr PROTOCOL PRN IV OTHER [SEE ORDER COMMENTS] 03/26/25 07:30 04/25/25 07:29 Morphine Sulfate (morPHINE 2MG SYG) 1 mg Q4H PRN IVP SEVERE PAIN (7-10) 03/26/25 07:30 04/02/25 07:29 Multivitamins/ Minerals 10 ml/ Folic Acid 1 mg/ Thiamine HCl 100 mg/Sodium Chloride 1,010 ml @ 70 mls/hr DAILY IV 03/28/25 09:00 03/28/25 08:50 DC Nitroglycerin (Nitrostat) 0.4 mg PROTOCOL PRN SL CHEST PAIN 03/26/25 07:30 04/25/25 07:29 Ondansetron HCl (zoFRAN 4MG INJ) 4 mg Q6H PRN IV NAUSEA/VOMITING 03/26/25 07:30 04/25/25 07:29 Piperacillin Sod/ Tazobactam Sod 50 ml @ 12.5 mls/hr [id number] IV 03/26/25 13:00 04/05/25 12:59 03/28/25 05:57 12.5 MLS/HR Potassium Chloride 100 ml @ 100 mls/hr AD PRN IV POTASSIUM PROTOCOL 03/26/25 07:30 04/25/25 07:29 03/28/25 04:42 100 MLS/HR Potassium Chloride (K-Dur/Klor-Con 20meq) 20 meq AD PRN PO POTASSIUM PROTOCOL 03/26/25 07:30 04/25/25 07:29 Potassium Chloride (KCl 10% Elixir 20meq/15ml) 20 meq AD PRN PO POTASSIUM PROTOCOL 03/26/25 07:30 04/25/25 07:29 Sodium Chloride 1,000 ml @ 100 mls/hr Q10H IV 03/26/25 07:30 03/27/25 08:16 DC 03/26/25 20:48 100 MLS/HR Zolpidem Tartrate (AmbIEN) 5 mg HS PRN PO INSOMNIA 03/26/25 07:30 04/25/25 07:29 DIAGNOSTICS / [facility]OL[facility] [place] [address] [address] IMAGING REPORT Signed PATIENT: CECILLE GUTIERREZ MR#: [id number] : 2005 SEX: F AGE: 20 LOCATION: 4AH ORDER 1411 STATUS: ADM IN REPORT#: [id number] SERVICE [id number] REASON: Dilated left intrahepatic biliary radical ORDERING PHYSICIAN: AREN ANAYA MD PROCEDURE: MRCP WO - MRCP(ABDWO)CHOLANGIOPANCREATOG EXAM: MRCP CLINICAL HISTORY: Dilated left intrahepatic biliary radical. COMPARISON: CT abdomen and pelvis and ultrasound abdomen dated March 26, 2025. CONTRAST: Not applicable. TECHNIQUE: Multisequence, multiplanar MRCP was performed without intravenous contrast. Sagittal and coronal reformatted images submitted for interpretation. FINDINGS: LIVER: Unremarkable. No focal hepatic lesions. GALLBLADDER AND BILE DUCTS: The gallbladder and biliary ducts are unremarkable. No gallstones or biliary ductal dilatation. PANCREAS: The pancreas is unremarkable. No ductal dilation. SPLEEN: The spleen is unremarkable. STOMACH AND BOWEL: No acute bowel process identified on limited evaluation. ADRENALS: The adrenal glands are unremarkable. KIDNEYS: The kidneys are unremarkable. No hydronephrosis or masses. LYMPH NODES: No lymphadenopathy. IMPRESSION: No biliary ductal dilatation. No gallstones. No pancreatic abnormality. /[place] DICTATED BY: LINDA BRO MD DATE: 03/28/25839 ELECTRONICALLY SIGNED BY: LINDA BRO MD DATE: 03/28/25839 ASSESSMENT: Rectal bleeding [ Gastroparesis POA Acute enterocolitis POA Lactose intolerance Intractable nausea and vomiting POA Intra hepatic periportal edema POA Possible acute hepatitis new diagnosis POA Acute pyelonephritis POA Severe malnutrition POA Hypertension POA Acute complicated cystitis POA Ulcerative colitis History of colon removed March 2024 History of partial rectum removal July 2024 J-pouch creation October 2024 ] PLAN: Rectal bleeding Recommended gastrointestinal evaluation to determine the cause of rectal bleeding Consider stool tests and possibly imaging studies or endoscopy Colonoscopy was planned it tomorrow a.m. Patient started on clear liquid diet Gastroparesis POA Acute enterocolitis POA [ Patient admitted echo surgical floor as inpatient GI consulted Dietary consulted for malnutrition NPO Intra hepatic periportal edema POA Possible acute hepatitis new diagnosis POA MRCP revealed no significant abnormalities Severe malnutrition Start patient on high-protein right after discharge Ulcerative colitis History of colon removed March 2024 History of partial rectum removal July 2024 J-pouch creation October 2024 ] General surgeon recommended to follow GI recommendations Lactose intolerance Follow lactose free diet after discharge Zosyn prophylaxis Normal saline at 100 mL/hour UA positive for leukocytosis CT abdomen/pelvis showed acute enterocolitis, intrahepatic periportal edema, acute hepatitis, acute pyelonephriti Hyper hypoglycemia protocol Hypomagnesemia protocol Hypokalemia protocol PRN pain medications ATTESTATION BY PHYSICIAN I have seen and examined the patient. I reviewed the documentation, medical d ecision making, and treatment plan as noted by the mid-level provider above. I agree with the findings and plan of care. guillermina Eastman MD, HARSHA MD Mar 28, 2025 17:31
[2025-03-28] MEDS: PEG 3350/NA SULF,BICARB,CL/KCL 4000 ML SOLN PO ONE (18:58)
[2025-03-28] MEDS: ZOSYN 3.375GM+NS 50ML 50 ML IV SCH (18:58)
[2025-03-29] VITALS (20 sets, daily range): BP systolic 81–111; BP diastolic 50–83; PULSE 51–94; RESP 12–18; TEMP 97.1–98; O2SAT 97–100
[2025-03-29 05:52] LABS: IMMATURE GRANULOCYTE ABSOLUTE 0.01 K/uL (0-1); NUCLEATED RED BLOOD CELLS 0.0 % (0.0-0.19); PLATELET COUNT (AUTO) 265 K/uL (130-400); RED BLOOD CELL COUNT(AUTO) 4.18 MIL/uL (4.00-5.50); RED CELL DISTRIBUTION WIDTH 13.2 % (11.0-15.5); WHITE BLOOD COUNT (AUTO) 3.2 K/uL (4.8-10.8)
[2025-03-29 06:00] LABS: CREATININE 0.6 mg/dL (0.5-1.0); GLOMERULAR FILTR. RATE CALC 131.0 mL/min (>90); GLUCOSE,RANDOM 96.0 mg/dL (70-105); SODIUM SERUM 138.0 mmol/L (136-145); UREA NITROGEN, BLOOD 2.0 mg/dL (7-18)
[2025-03-29] MEDS: PoTASSium chloRIDE 20MEQ ER 20 MEQ ERTAB PO ONE (11:57)
--- NOTE | 2025-03-29 13:43 | PN ---
GASTROENTEROLOGY PROGRESS NOTE Date of Visit: Mar 29, 2025 Time of Visit: 13:40 Events / Notes: [ Pouchoscopy significant for moderate pouchitis in distal rectum, normal ileum. ] Review of Systems: CONSTITUTIONAL: No malaise or change in sensation of wellbeing. ENMT: No rhinorrhea, otorrhea, sinus pain, ear ache. CARDIOVASCULAR: No angina, palpitations, orthopnea or paroxysmal dyspnea. RESPIRATORY: No SOB. GASTROINTESTINAL: No abdominal pain, nausea, vomiting, diarrhea, hematemesis, melena or change in the patient's habitual bowel movements consistency/number. GENITOURINARY: No dysuria, hematuria or change in bladder continence. MUSCULOSKELETAL: No new muscle pain or decrease in muscular strength. No new joint swelling, redness or tenderness. SKIN: No new rash. Physical Exam: GEN: Awake, alert, oriented in person, time and place, and in no acute distress. HEENT: . No rhinorrhea. Oral pharyngeal mucosa is pink, moist and within normal limits. CHEST: Inspection, palpation and percussion of the chest were unremarkable. Lung auscultation revealed normal breath sounds bilaterally. CARDIAC: PMI is within normal limits. Heart sounds are regular. ABD: Soft, non-tender and not distended. No peritoneal signs on palpation. No organomegaly. Normal bowel sounds. EXT: No cyanosis or clubbing. No edema. SKIN: Intact. No rashes. JOINTS: No evidence of synovitis or acute arthritis. NEURO: Alert and oriented to name, place and person. No focal motor deficits. Normal speech. Strength is normal. Vital Signs (last 8hr) Date Time Temp Pulse Resp B/P (MAP) Pulse Ox O2 Delivery O2 Flow Rate FiO2 03/29/25 11:45 97.2 73 18 84/71 97 Room Air 03/29/25 11:30 97.3 55 13 100/66 98 Room Air 03/29/25 11:25 54 14 101/64 98 Room Air 03/29/25 11:20 55 13 100/71 99 Room Air 03/29/25 11:15 53 14 105/62 98 Room Air 03/29/25 11:10 58 12 98/63 100 Nasal Cannula 2.0 03/29/25 11:05 59 13 91/50 100 Nasal Cannula 3.0 03/29/25 11:00 97.5 58 14 89/50 100 Nasal Cannula 3.0 03/29/25 10:26 Mask 03/29/25 10:26 Mask 10.0 03/29/25 08:00 100 Room Air* 0 21 03/29/25 07:47 97.9 64 14 90/59 100 Room Air Laboratory: [ ] Laboratory: Test 03/29/25 11:51 03/29/25 05:36 03/29/25 05:35 03/28/25 17:33 Range/Units Whole Blood Glucose 73 70-110 MG/DL Magnesium Level 1.80 1.80-2.40 mg/dL White Blood Count 3.2 L 4.8-10.8 K/uL Red Blood Count 4.18 4.00-5.50 MIL/uL Hemoglobin 11.8 L 12.0-16.0 g/dL Hematocrit 34.6 L 36-48 % Mean Corpuscular Volume 82.8 80-100 fL Mean Corpuscular Hemoglobin 28.2 27.0-33.0 pg Mean Corpuscular Hemoglobin Concent 34.1 32.0-36.0 g/dL Red Cell Distribution Width 13.2 11.0-15.5 % Platelet Count 265 130-400 K/uL Mean Platelet Volume 10.0 7.5-10.5 fL Immature Granulocyte % (Auto) 0.3 0-1 % Neutrophils (%) (Auto) 46.1 40.0-77.0 % Lymphocytes (%) (Auto) 38.5 21.0-51.0 % Monocytes (%) (Auto) 10.2 3.0-13.0 % Eosinophils (%) (Auto) 4.0 0.0-8.0 % Basophils (%) (Auto) 0.9 0.0-5.0 % Neutrophils # (Auto) 1.5 L 1.8-7.7 K/uL Lymphocytes # (Auto) 1.2 1.0-4.8 K/uL Monocytes # (Auto) 0.3 0.1-1.0 K/uL Eosinophils # (Auto) 0.13 0.00-0.70 K/uL Basophils # (Auto) 0.03 0.00-0.20 K/uL Absolute Immature Granulocyte (auto 0.01 0-1 K/uL Nucleated Red Blood Cells 0.0 0.0-0.19 % Sodium Level 138 136-145 mmol/L Potassium Level 3.1 L 3.5-5.1 mmol/L Chloride Level 103 101-111 mmol/L Carbon Dioxide Level 27 21-32 mmol/L Blood Urea Nitrogen 2 L 7-18 mg/dL Creatinine 0.6 0.5-1.0 mg/dL Glomerular Filtration Rate Calc 131 >90 mL/min Random Glucose 96 70-105 mg/dL Total Calcium 8.6 8.5-10.1 mg/dL Bedside Glucose Comment Notified Nurse Test 03/28/25 03:36 Range/Units Segmented Neutrophils % 39 L 40-70 % Band Neutrophils % 1 0-2 % Lymphocytes % (Manual) 50 H 22-44 % Monocytes % (Manual) 6 2-9 % Eosinophils % (Manual) 4 1-6 % Differential Comment MANUAL DIF White Cell Morphology Comment Platelet Morphology Comment ADEQUATE Red Blood Cell Morphology HYPOCHROM CELLS 1+ Current Medications Medications (Trade) Dose Ordered Sig/Baljit Route PRN Reason Start Time Stop Time Status Last Admin Dose Admin Acetaminophen (TYLenol 325MG TAB) 650 mg Q4H PRN PO MILD PAIN (1-3) 03/26/25 07:30 04/25/25 07:29 Acetaminophen (TYLenol 325MG TAB) 650 mg Q6H PRN PO MILD PAIN (1-3) 03/26/25 07:30 03/26/25 07:22 DC Acetaminophen (TYLenol 325MG TAB) 650 mg Q6H PRN PO TEMPERATURE GREATER THAN 101.5 03/26/25 07:30 04/25/25 07:29 Al Hydroxide/Mg Hydroxide (MAALox PLUS 30ML) 30 ml Q6H PRN PO INDIGESTION 03/26/25 07:30 04/25/25 07:29 Dextrose (D50w) 50 ml AD PRN IV HYPOGLYCEMIA PROTOCOL 03/26/25 07:30 04/25/25 07:29 03/27/25 05:31 50 ML Dextrose/Sodium Chloride 1,000 ml @ 75 mls/hr [id number] IV 03/27/25 08:30 04/26/25 08:29 03/29/25 12:09 75 MLS/HR Diphenhydramine HCl (BENAdryl INJ) 25 mg Q6H PRN IV SEVERE ITCHING/RASH 03/26/25 07:30 04/25/25 07:29 Famotidine (Pepcid 20mg Vial) 20 mg BID PRN IV NAUSEA/VOMITING 03/26/25 07:30 04/25/25 07:29 Folic Acid 1 mg/ Thiamine HCl 100 mg/Sodium Chloride 1,010 ml @ 70 mls/hr DAILY IV 03/28/25 09:00 03/30/25 23:26 03/29/25 12:02 70 MLS/HR Glucagon (Glucagon 1mg Kit) 1 mg AD PRN IM HYPOGLYCEMIA PROTOCOL 03/26/25 07:30 04/25/25 07:29 Guaifenesin/ Dextromethorphan (RobiTUSSin DM 200/20MG 10ML) 10 ml Q4H PRN PO COUGH 03/26/25 07:30 04/25/25 07:29 Hydralazine HCl (APRESOLine 20MG INJ) 10 mg Q6H PRN IV For:SBP above 160;DBP above 90 03/26/25 07:30 04/25/25 07:29 Insulin Human Regular (humuLIN R 100 UNIT/ML 3ML) INSULIN SLIDING SCAL... ACHS SQ 03/26/25 07:30 04/25/25 07:29 Ketorolac Tromethamine (toRADol) 15 mg Q8H PRN IV MODERATE PAIN (4-6) 03/26/25 07:30 03/27/25 08:16 DC Lactulose (Constulose 20gm/ 30ml Udcup) 20 gm BID PRN PO CONSTIPATION 03/26/25 07:30 04/25/25 07:29 Magnesium Sulfate 50 ml @ 0 mls/hr PROTOCOL PRN IV OTHER [SEE ORDER COMMENTS] 03/26/25 07:30 04/25/25 07:29 Morphine Sulfate (morPHINE 2MG SYG) 1 mg Q4H PRN IVP SEVERE PAIN (7-10) 03/26/25 07:30 04/02/25 07:29 Multivitamins/ Minerals 10 ml/ Folic Acid 1 mg/ Thiamine HCl 100 mg/Sodium Chloride 1,010 ml @ 70 mls/hr DAILY IV 03/28/25 09:00 03/28/25 08:50 DC Nitroglycerin (Nitrostat) 0.4 mg PROTOCOL PRN SL CHEST PAIN 03/26/25 07:30 04/25/25 07:29 Ondansetron HCl (zoFRAN 4MG INJ) 4 mg Q6H PRN IV NAUSEA/VOMITING 03/26/25 07:30 04/25/25 07:29 Piperacillin Sod/ Tazobactam Sod 50 ml @ 12.5 mls/hr Q8H IV 03/28/25 18:30 04/04/25 18:29 03/29/25 11:57 12.5 MLS/HR Piperacillin Sod/ Tazobactam Sod 50 ml @ 12.5 mls/hr [id number] IV 03/26/25 13:00 03/28/25 18:24 DC 03/28/25 05:57 12.5 MLS/HR Potassium Chloride 100 ml @ 100 mls/hr AD PRN IV POTASSIUM PROTOCOL 03/26/25 07:30 04/25/25 07:29 03/28/25 04:42 100 MLS/HR Potassium Chloride (K-Dur/Klor-Con 20meq) 20 meq AD PRN PO POTASSIUM PROTOCOL 03/26/25 07:30 04/25/25 07:29 Potassium Chloride (KCl 10% Elixir 20meq/15ml) 20 meq AD PRN PO POTASSIUM PROTOCOL 03/26/25 07:30 04/25/25 07:29 Sodium Chloride 1,000 ml @ 100 mls/hr Q10H IV 03/26/25 07:30 03/27/25 08:16 DC 03/26/25 20:48 100 MLS/HR Zolpidem Tartrate (AmbIEN) 5 mg HS PRN PO INSOMNIA 03/26/25 07:30 04/25/25 07:29 Diagnostics / Radiology: [COPY/PASTE HERE IF NO REPORTS PLEASE DELETE SECTION] Assessment: [Hematochezia Crohns Plan: Case discussed with Dr. Ashford [Clear liquid diet today Recommend Mesalamine suppositories daily and continue after discharge x 14 days. Recommend Ciprofloxacin 500mg po bid and to continue after discharge for 10 days. Patient is recommended to f/u at [facility] in 1 week once discharged for complete workup and treatment. Please call with questions, concerns and change in clinical status Thank you for this consult. ] ALETHEA CHASE NP Mar 29, 2025 13:43
[2025-03-29] MEDS: CIPROFLOXACIN HCL 500 MG TABLET PO SCH (14:50)
--- NOTE | 2025-03-29 15:00 | NUR ---
informed primary team on rounds gave the 40 meq and per protocol will need more . per primary team ok to just give the 40meq and will follow up with am labs tomorrow
--- NOTE | 2025-03-29 17:11 | PN ---
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 Thank you for allowing us to participate in patient's care Vitals/Labs Vital Signs Date Time Temp Pulse Resp B/P (MAP) Pulse Ox O2 Delivery O2 Flow Rate FiO2 03/29/25 16:25 91 97/75 100 03/29/25 15:30 Nasal Cannula 2.0 03/29/25 11:45 97.2 18 03/29/25 08:00 21 Laboratory Tests 03/29/25 05:35 Medications Current Medications Sodium Chloride 1,000 ml @ 0 mls/hr ONCE ONCE IV Last administered on 03/26/25at 02:36; Start 03/26/25 at 02:30; Stop 03/26/25 at 02:31; Status DC Ondansetron HCl 4 mg ONCE ONCE IVP Last administered on 03/26/25at 02:36; Start 03/26/25 at 02:30; Stop 03/26/25 at 02:31; Status DC Pantoprazole Sodium 40 mg ONCE ONCE IVP Last administered on 03/26/25at 02:36; Start 03/26/25 at 02:30; Stop 03/26/25 at 02:31; Status DC Iohexol 75 ml STK-MED ONCE IV; Start 03/26/25 at 05:01; Stop 03/26/25 at 05:01; Status DC Piperacillin Sod/ Tazobactam Sod 3.375 gm ONCE ONCE IV Last administered on 03/26/25at 06:52; Start 03/26/25 at 06:30; Stop 03/26/25 at 06:31; Status DC Insulin Human Regular INSULIN SLIDING SCAL... ACHS SQ; Start 03/26/25 at 07:30; Stop 04/25/25 at 07:29 Dextrose 50 ml AD PRN IV Last administered on 03/27/25at 05:31; Start 03/26/25 at 07:30; Stop 04/25/25 at 07:29 Glucagon 1 mg AD PRN IM; Start 03/26/25 at 07:30; Stop 04/25/25 at 07:29 Potassium Chloride 100 ml @ 100 mls/hr AD PRN IV Last administered on 03/28/25at 04:42; Start 03/26/25 at 07:30; Stop 04/25/25 at 07:29 Potassium Chloride 20 meq AD PRN PO; Start 03/26/25 at 07:30; Stop 04/25/25 at 07:29 Potassium Chloride 20 meq AD PRN PO; Start 03/26/25 at 07:30; Stop 04/25/25 at 07:29 Magnesium Sulfate 50 ml @ 0 mls/hr PROTOCOL PRN IV; Start 03/26/25 at 07:30; Stop 04/25/25 at 07:29 Diphenhydramine HCl 25 mg Q6H PRN IV; Start 03/26/25 at 07:30; Stop 04/25/25 at 07:29 Acetaminophen 650 mg Q6H PRN PO; Start 03/26/25 at 07:30; Stop 04/25/25 at 07:29 Acetaminophen 650 mg Q4H PRN PO; Start 03/26/25 at 07:30; Stop 04/25/25 at 07:29 Ondansetron HCl 4 mg Q6H PRN IV; Start 03/26/25 at 07:30; Stop 04/25/25 at 07:29 Zolpidem Tartrate 5 mg HS PRN PO; Start 03/26/25 at 07:30; Stop 04/25/25 at 07:29 Al Hydroxide/Mg Hydroxide 30 ml Q6H PRN PO; Start 03/26/25 at 07:30; Stop 04/25/25 at 07:29 Lactulose 20 gm BID PRN PO; Start 03/26/25 at 07:30; Stop 04/25/25 at 07:29 Nitroglycerin 0.4 mg PROTOCOL PRN SL; Start 03/26/25 at 07:30; Stop 04/25/25 at 07:29 Guaifenesin/ Dextromethorphan 10 ml Q4H PRN PO; Start 03/26/25 at 07:30; Stop 04/25/25 at 07:29 Famotidine 20 mg BID PRN IV; Start 03/26/25 at 07:30; Stop 04/25/25 at 07:29 Acetaminophen 650 mg Q6H PRN PO; Start 03/26/25 at 07:30; Stop 03/26/25 at 07:22; Status DC Ketorolac Tromethamine 15 mg Q8H PRN IV; Start 03/26/25 at 07:30; Stop 03/27/25 at 08:16; Status DC Morphine Sulfate 1 mg Q4H PRN IVP; Start 03/26/25 at 07:30; Stop 04/02/25 at 07:29 Piperacillin Sod/ Tazobactam Sod 50 ml @ 12.5 mls/hr [id number] IV Last administered on 03/28/25at 05:57; Start 03/26/25 at 13:00; Stop 03/28/25 at 18:24; Status DC Sodium Chloride 1,000 ml @ 100 mls/hr Q10H IV Last administered on 03/26/25at 20:48; Start 03/26/25 at 07:30; Stop 03/27/25 at 08:16; Status DC Hydralazine HCl 10 mg Q6H PRN IV; Start 03/26/25 at 07:30; Stop 04/25/25 at 07:29 Dextrose/Sodium Chloride 1,000 ml @ 75 mls/hr [id number] IV Last administered on 03/29/25at 12:09; Start 03/27/25 at 08:30; Stop 04/26/25 at 08:29 Propofol 200 mg STK-MED ONCE IV; Start 03/27/25 at 11:31; Stop 03/27/25 at 11:31; Status DC Magnesium Oxide 400 mg ONCE ONCE PO Last administered on 03/28/25at 09:28; Start 03/28/25 at 09:00; Stop 03/28/25 at 09:01; Status DC Potassium Chloride 40 meq ONCE ONCE PO Last administered on 03/28/25at 09:27; Start 03/28/25 at 09:00; Stop 03/28/25 at 09:01; Status DC Multivitamins/ Minerals 10 ml/ Folic Acid 1 mg/ Thiamine HCl 100 mg/Sodium Chloride 1,010 ml @ 70 mls/hr DAILY IV; Start 03/28/25 at 09:00; Stop 03/28/25 at 08:50; Status DC Thiamine HCl 100 mg ONCE ONCE IVP Last administered on 03/28/25at 09:28; Start 03/28/25 at 09:00; Stop 03/28/25 at 09:01; Status DC Folic Acid 1 mg/ Thiamine HCl 100 mg/Sodium Chloride 1,010 ml @ 70 mls/hr DAILY IV Last administered on 03/29/25at 12:02; Start 03/28/25 at 09:00; Stop 03/30/25 at 23:26 Polyethylene Glycol/ Electrolytes 2,000 ml ONCE ONCE PO Last administered on 03/28/25at 18:58; Start 03/28/25 at 15:30; Stop 03/28/25 at 15:31; Status DC Piperacillin Sod/ Tazobactam Sod 50 ml @ 12.5 mls/hr Q8H IV Last administered on 03/29/25at 11:57; Start 03/28/25 at 18:30; Stop 04/04/25 at 18:29 Potassium Chloride 40 meq ONCE ONCE PO Last administered on 03/29/25at 11:57; Start 03/29/25 at 10:00; Stop 03/29/25 at 10:01; Status DC Propofol 200 mg STK-MED ONCE IV; Start 03/29/25 at 10:46; Stop 03/29/25 at 10:46; Status DC Mesalamine 1,000 mg HS OR; Start 03/29/25 at 21:00; Stop 04/28/25 at 20:59 Pharmacy Profile Note 1 each BID MISC; Start 03/29/25 at 21:00; Stop 03/29/25 at 13:45; Status DC Ciprofloxacin HCl 500 mg BID PO Last administered on 03/29/25at 14:50; Start 03/29/25 at 13:50; Stop 04/08/25 at 13:49 GAVIN WYATT Jr. Mar 29, 2025 17:11
--- NOTE | 2025-03-29 17:35 | PN ---
[facility] PROGRESS NOTE Date of Service: Mar 29, 2025 Time of Service: 17:23 SUBJECTIVE: Patient is 20 years female with a past medical history of ulcerative colitis s/p colon removal March 2024, partial rectal removal July 2024 followed by creation of J-pouch October 2024 in [facility], who came to emergency department with a complaint of nausea, vomiting for the past 20 days. Patient also stated that she lost about4 to 5 kg in the time as well. Family members/mother at the bedside. Per patient anything she would drink or eat she can not hold it and within an hour she would vomit everything. Patient denies any abdominal pain. Most recent vital signs 98.1 Pulse 79 respiration 15 blood pressure 110/57 influenza A negative influenza B negative COVID negative. UA positive for leukocytosis. Toxicology negative. Sodium 136 potassium 4.3 CO2 28 BUN 8 creatinine 0.8 GFR 107 lipase 45 hCG negative . WBC 7.7 Hemoglobin 14.9 hematocrit 44.[address] abdomen/pelvis showed acute enterocolitis, intrahepatic periportal edema. Possible acute hepatitis. Acute pyelonephritis. Chest x-ray negative. Patient will be admitted under hospitalist care for further evaluation/recommendation. GI will be consulted for further plan and recommendations. Dietary consultation will be provided to patient for severe malnutrition. A.m. labs. 03/27/2025: The patient is seen in the room [id number]. She is awake, alert, orientedx3. Today the patient reported experiencing rectal bleeding during bowel movements in the morning. The patient described no associated pain but noted a sensation s, which lasted of urge defecate which lasted about 6-7 minutes. The patient experienced nausea for the past 20 days and reported vomiting up to 4 times a day while at home, with the vomit sometimes being green. The patient did not report any abdominal pain, diarrhea, constipation chills, fever, urinary symptoms during urination. The patient noted a decreased appetite and weight loss since surgery in March 2024, presenting in a weight loss of about 16-17 kg. The patient has been experiencing increased stool frequency and urgency, going to the restroom up to 9 times per day, and this condition improved by December and January 2025. EGD was done and revealed normal esophagus normal duodenum, patchy moderate inflammation characterized by congestion and erythema was found in the entire examined stomach. General surgery recommendation was given. Patient changed from full liquid diet to clear diet. Patient has been identified as lactose intolerant. MRCP recommendation was given due to a dilated biliary duct. Keep the patient on NPO on the midnight before MRCP procedure. Her vitals are normal. Labs show WBC trending from 7.7 to 3.1, RBC trending down from 5.23 To 3.75, hemoglobin 10.6, hematocrit 33.0. Chemistry revealed ketones. She has severe protein calorie malnutrition. 03/28/2025: The patient is seen in the room for 401. She is awake, alert, oriented x3. general surgeon recommended to follow the GI recommendations. Exhibit Designer planned for colonoscopy tomorrow a.m. insert normal except temperature 97.3. Labs revealed WBC 2.9, RBC 3.9, hemoglobin 11.0, hematocrit 33.7. Sodium 138, potassium 2.8, [id number], bicarbonate 24. The patient reported no current pain or blood in the stool. The patient mentioned no episodes of vomiting or nausea. The patient expressed anticipation for updates from doctors regarding potential procedures or tests to determine the source and the cause of the previous bleeding. The patient was maintained on a clear liquid diet. The patient was informed about the current current plan and the reassured that the updates will be provided. The patient will be remained under observation awaiting further evaluation and treatment decisions. MRCP revealed no significant abnormality. 03/29/2025: Patient is seen in the room for 430. She is awake, alert, orientedx3. Vitals are normal. Labs revealed WBC trending up from 2.9-3.2, hemoglobin 11.8, hematocrit 34.6, sodium 138, potassium 3.1, chloride 103, BUN 2, creatinine 0.6. Today the patient reported going to the restroom noted blood in the stool. The patient did not report any chills, fever, or urinary symptoms. The color of the urine was described as a yellow. The patient did not experience strong abdominal pain but mentioned as a lasting about 10 seconds. The patient also reported feeling dizzy after using restroom. There were no symptoms of vomiting or nausea. The patient was currently on liquid diet, and she reported a sensation of incomplete evacuation during bowel movements. The patient underwent her colonoscopy procedure and the results were out. It revealed pouchitis, the appropriate recommendations were given. REVIEW OF SYSTEMS CONSTITUTIONAL: Denies fevers, chills, or night sweats. No unintentional weight loss reported. NEUROLOGICAL: Denies headache, amaurosis fugax, motor weakness, sensory deficit, vertigo/spinning sensation, gait abnormalities, or tremors. ENT: No hearing loss, otalgia, otorrhea, rhinitis, rhinorrhea, hoarseness, or sore throat. CARDIOVASCULAR: Denies any exertional angina, dyspnea on exertion, orthopnea, paroxysmal nocturnal dyspnea, palpitations, life-threatening arrhythmias, claudication. PULMONARY: Denies any shortness of breath, cough, phlegm/sputum, hemoptysis, pleuritic chest pain. SLEEP: Denies morning headaches, daytime somnolence or napping. Denies difficulty falling asleep, staying asleep, waking from sleep. Denies knowledge of snoring. GASTROINTESTINAL: Denies any type of dysphagia to either liquids or solids. Denies pyrosis, early satiety, abdominal pain, diarrhea, constipation, or changes in stool consistency or caliber. Denies coffee-ground emesis, he matemesis, hematochezia, or melanotic stools. Severe nausea and vomiting GENITOURINARY: Denies frequency, urgency, nocturia, hematuria or incontinence (Storage/Irritative symptoms.) Low urinary stream, straining to void, urinary intermittency or hesitancy, splitting of the voiding stream, terminal dribbling. ENDOCRINOLOGIC: Denies polyuria, polydipsia, polyphagia or heat/cold intolerances. HEMATOLOGIC: Denies thrombophilia/previous clots, or coagulopathy/bleeding disorders. ONCOLOGIC: Denies personal history of malignancy. DERMATOLOGIC: Denies rashes or pruritus. PSYCHIATRIC: Denies any suicidal or homicidal ideation. Denies hallucinations. PHYSICAL EXAM GENERAL APPEARANCE: The patient is awake, alert, and oriented, in no acute cardiopulmonary distress. NEUROLOGICAL: Cranial nerves II-XII grossly intact. Motor is 5/5 in bilateral upper and lower extremities proximal to distal. No sensory deficits. HEENT: Face is symmetric. Pupils are equal and reactive. Extraocular movements are intact. NECK: Supple. No JVD. No thyromegaly. No submental, submandibular, pre- /postauricular, occipital or supraclavicular lymphadenopathy. CHEST: Normal chest expansion. No Telemetry. LUNGS: Absence of any rales, rhonchi or any wheezing. CARDIOVASCULAR: Regular. S1 and S2 normal. No appreciable rubs, murmurs or gallops. ABDOMEN: Soft, nontender, and nondistended. There is no rebound, voluntary gu arding, or rigidity. : Deferred. No Milligan. EXTREMITIES: Non-edematous and not cyanotic. No clubbing. Good capillary refill. SKIN: No skin breakdown. Vital Signs (last 8hr) Date Time Temp Pulse Resp B/P (MAP) Pulse Ox O2 Delivery O2 Flow Rate FiO2 03/29/25 16:25 91 97/75 100 03/29/25 15:30 75 95/79 97 Nasal Cannula 2.0 03/29/25 14:30 94 103/83 97 Nasal Cannula 2.0 03/29/25 13:30 80 99/75 99 Room Air 03/29/25 13:00 80 111/77 100 Room Air 03/29/25 12:30 71 94/76 99 Nasal Cannula 2.0 03/29/25 12:15 68 89/77 98 Nasal Cannula 2.0 03/29/25 12:00 51 87/70 96 Nasal Cannula 2.0 03/29/25 11:45 97.2 73 18 84/71 97 Room Air 03/29/25 11:30 97.3 55 13 100/66 98 Room Air 03/29/25 11:25 54 14 101/64 98 Room Air 03/29/25 11:20 55 13 100/71 99 Room Air 03/29/25 11:15 53 14 105/62 98 Room Air 03/29/25 11:10 58 12 98/63 100 Nasal Cannula 2.0 03/29/25 11:05 59 13 91/50 100 Nasal Cannula 3.0 03/29/25 11:00 97.5 58 14 89/50 100 Nasal Cannula 3.0 03/29/25 10:26 Mask 03/29/25 10:26 Mask 10.0 LABS: Laboratory: Test 03/29/25 17:09 03/29/25 05:36 03/29/25 05:35 03/28/25 17:33 Range/Units Whole Blood Glucose 89 70-110 MG/DL Magnesium Level 1.80 1.80-2.40 mg/dL White Blood Count 3.2 L 4.8-10.8 K/uL Red Blood Count 4.18 4.00-5.50 MIL/uL Hemoglobin 11.8 L 12.0-16.0 g/dL Hematocrit 34.6 L 36-48 % Mean Corpuscular Volume 82.8 80-100 fL Mean Corpuscular Hemoglobin 28.2 27.0-33.0 pg Mean Corpuscular Hemoglobin Concent 34.1 32.0-36.0 g/dL Red Cell Distribution Width 13.2 11.0-15.5 % Platelet Count 265 130-400 K/uL Mean Platelet Volume 10.0 7.5-10.5 fL Immature Granulocyte % (Auto) 0.3 0-1 % Neutrophils (%) (Auto) 46.1 40.0-77.0 % Lymphocytes (%) (Auto) 38.5 21.0-51.0 % Monocytes (%) (Auto) 10.2 3.0-13.0 % Eosinophils (%) (Auto) 4.0 0.0-8.0 % Basophils (%) (Auto) 0.9 0.0-5.0 % Neutrophils # (Auto) 1.5 L 1.8-7.7 K/uL Lymphocytes # (Auto) 1.2 1.0-4.8 K/uL Monocytes # (Auto) 0.3 0.1-1.0 K/uL Eosinophils # (Auto) 0.13 0.00-0.70 K/uL Basophils # (Auto) 0.03 0.00-0.20 K/uL Absolute Immature Granulocyte (auto 0.01 0-1 K/uL Nucleated Red Blood Cells 0.0 0.0-0.19 % Sodium Level 138 136-145 mmol/L Potassium Level 3.1 L 3.5-5.1 mmol/L Chloride Level 103 101-111 mmol/L Carbon Dioxide Level 27 21-32 mmol/L Blood Urea Nitrogen 2 L 7-18 mg/dL Creatinine 0.6 0.5-1.0 mg/dL Glomerular Filtration Rate Calc 131 >90 mL/min Random Glucose 96 70-105 mg/dL Total Calcium 8.6 8.5-10.1 mg/dL Bedside Glucose Comment Notified Nurse Test 03/28/25 03:36 Range/Units Segmented Neutrophils % 39 L 40-70 % Band Neutrophils % 1 0-2 % Lymphocytes % (Manual) 50 H 22-44 % Monocytes % (Manual) 6 2-9 % Eosinophils % (Manual) 4 1-6 % Differential Comment MANUAL DIF White Cell Morphology Comment Platelet Morphology Comment ADEQUATE Red Blood Cell Morphology HYPOCHROM CELLS 1+ Vitamin D 25-Hydroxy 20.5 30.0-100.0 ng/mL Current Medications Medications (Trade) Dose Ordered Sig/Baljit Route PRN Reason Start Time Stop Time Status Last Admin Dose Admin Acetaminophen (TYLenol 325MG TAB) 650 mg Q4H PRN PO MILD PAIN (1-3) 03/26/25 07:30 04/25/25 07:29 Acetaminophen (TYLenol 325MG TAB) 650 mg Q6H PRN PO MILD PAIN (1-3) 03/26/25 07:30 03/26/25 07:22 DC Acetaminophen (TYLenol 325MG TAB) 650 mg Q6H PRN PO TEMPERATURE GREATER THAN 101.5 03/26/25 07:30 04/25/25 07:29 Al Hydroxide/Mg Hydroxide (MAALox PLUS 30ML) 30 ml Q6H PRN PO INDIGESTION 03/26/25 07:30 04/25/25 07:29 Ciprofloxacin HCl (Ciprofloxacin HCl) 500 mg BID PO 03/29/25 13:50 04/08/25 13:49 03/29/25 14:50 500 MG Dextrose (D50w) 50 ml AD PRN IV HYPOGLYCEMIA PROTOCOL 03/26/25 07:30 04/25/25 07:29 03/27/25 05:31 50 ML Dextrose/Sodium Chloride 1,000 ml @ 75 mls/hr [id number] IV 03/27/25 08:30 04/26/25 08:29 03/29/25 12:09 75 MLS/HR Diphenhydramine HCl (BENAdryl INJ) 25 mg Q6H PRN IV SEVERE ITCHING/RASH 03/26/25 07:30 04/25/25 07:29 Famotidine (Pepcid 20mg Vial) 20 mg BID PRN IV NAUSEA/VOMITING 03/26/25 07:30 04/25/25 07:29 Folic Acid 1 mg/ Thiamine HCl 100 mg/Sodium Chloride 1,010 ml @ 70 mls/hr DAILY IV 03/28/25 09:00 03/30/25 23:26 03/29/25 12:02 70 MLS/HR Glucagon (Glucagon 1mg Kit) 1 mg AD PRN IM HYPOGLYCEMIA PROTOCOL 03/26/25 07:30 04/25/25 07:29 Guaifenesin/ Dextromethorphan (RobiTUSSin DM 200/20MG 10ML) 10 ml Q4H PRN PO COUGH 03/26/25 07:30 04/25/25 07:29 Hydralazine HCl (APRESOLine 20MG INJ) 10 mg Q6H PRN IV For:SBP above 160;DBP above 90 03/26/25 07:30 04/25/25 07:29 Insulin Human Regular (humuLIN R 100 UNIT/ML 3ML) INSULIN SLIDING SCAL... ACHS SQ 03/26/25 07:30 04/25/25 07:29 Ketorolac Tromethamine (toRADol) 15 mg Q8H PRN IV MODERATE PAIN (4-6) 03/26/25 07:30 03/27/25 08:16 DC Lactulose (Constulose 20gm/ 30ml Udcup) 20 gm BID PRN PO CONSTIPATION 03/26/25 07:30 04/25/25 07:29 Magnesium Sulfate 50 ml @ 0 mls/hr PROTOCOL PRN IV OTHER [SEE ORDER COMMENTS] 03/26/25 07:30 04/25/25 07:29 Mesalamine (Canasa Supp) 1,000 mg HS [place] 03/29/25 21:00 04/28/25 20:59 Morphine Sulfate (morPHINE 2MG SYG) 1 mg Q4H PRN IVP SEVERE PAIN (7-10) 03/26/25 07:30 04/02/25 07:29 Multivitamins/ Minerals 10 ml/ Folic Acid 1 mg/ Thiamine HCl 100 mg/Sodium Chloride 1,010 ml @ 70 mls/hr DAILY IV 03/28/25 09:00 03/28/25 08:50 DC Nitroglycerin (Nitrostat) 0.4 mg PROTOCOL PRN SL CHEST PAIN 03/26/25 07:30 04/25/25 07:29 Ondansetron HCl (zoFRAN 4MG INJ) 4 mg Q6H PRN IV NAUSEA/VOMITING 03/26/25 07:30 04/25/25 07:29 Pharmacy Profile Note (Pharmacy Communication) 1 each BID MISC 03/29/25 21:00 03/29/25 13:45 DC Piperacillin Sod/ Tazobactam Sod 50 ml @ 12.5 mls/hr Q8H IV 03/28/25 18:30 04/04/25 18:29 03/29/25 11:57 12.5 MLS/HR Piperacillin Sod/ Tazobactam Sod 50 ml @ 12.5 mls/hr [id number] IV 03/26/25 13:00 03/28/25 18:24 DC 03/28/25 05:57 12.5 MLS/HR Potassium Chloride 100 ml @ 100 mls/hr AD PRN IV POTASSIUM PROTOCOL 03/26/25 07:30 04/25/25 07:29 03/28/25 04:42 100 MLS/HR Potassium Chloride (K-Dur/Klor-Con 20meq) 20 meq AD PRN PO POTASSIUM PROTOCOL 03/26/25 07:30 04/25/25 07:29 Potassium Chloride (KCl 10% Elixir 20meq/15ml) 20 meq AD PRN PO POTASSIUM PROTOCOL 03/26/25 07:30 04/25/25 07:29 Sodium Chloride 1,000 ml @ 100 mls/hr Q10H IV 03/26/25 07:30 03/27/25 08:16 DC 03/26/25 20:48 100 MLS/HR Zolpidem Tartrate (AmbIEN) 5 mg HS PRN PO INSOMNIA 03/26/25 07:30 04/25/25 07:29 DIAGNOSTICS / RADIOLOGY: [place] [address] IMAGING REPORT Signed PATIENT: CECILLE GUTIERREZ MR#: [id number] : 2005 SEX: F AGE: 20 LOCATION: 4AH ORDER 1411 STATUS: ADM IN REPORT#: [id number] SERVICE [id number] REASON: Dilated left intrahepatic biliary radical ORDERING PHYSICIAN: AREN ANAYA MD PROCEDURE: MRCP WO - MRCP(ABDWO)CHOLANGIOPANCREATOG EXAM: MRCP CLINICAL HISTORY: Dilated left intrahepatic biliary radical. COMPARISON: CT abdomen and pelvis and ultrasound abdomen dated March 26, 2025. CONTRAST: Not applicable. TECHNIQUE: Multisequence, multiplanar MRCP was performed without intravenous contrast. Sagittal and coronal reformatted images submitted for interpretation. FINDINGS: LIVER: Unremarkable. No focal hepatic lesions. GALLBLADDER AND BILE DUCTS: The gallbladder and biliary ducts are unremarkable. No gallstones or biliary ductal dilatation. PANCREAS: The pancreas is unremarkable. No ductal dilation. SPLEEN: The spleen is unremarkable. STOMACH AND BOWEL: No acute bowel process identified on limited evaluation. ADRENALS: The adrenal glands are unremarkable. KIDNEYS: The kidneys are unremarkable. No hydronephrosis or masses. LYMPH NODES: No lymphadenopathy. IMPRESSION: No biliary ductal dilatation. No gallstones. No pancreatic abnormality. /[place] DICTATED BY: LINDA BRO MD DATE: 03/28/25839 ELECTRONICALLY SIGNED BY: LINDA BRO MD DATE: 03/28/25839 ASSESSMENT: Pouchitis Hematochezia [ Gastroparesis POA Acute enterocolitis POA Lactose intolerance Intractable nausea and vomiting POA Intra hepatic periportal edema POA Possible acute hepatitis new diagnosis POA Acute pyelonephritis POA Severe malnutrition POA Hypertension POA Acute complicated cystitis POA Ulcerative colitis History of colon removed March 2024 History of partial rectum removal July 2024 J-pouch creation October 2024 ] PLAN: Pouchitis Showed localized moderate inflammation found in the rectum secondary to pouchitis Waiting for the pathology results Full liquid diet No aspirin, ibuprofen, naproxen, or other nonsteroidal anti-inflammatory drugs Prescribed Cipro and mesalamine suppositories Follow up to the GI clinic within 1 week can start switching to solid diet soft from tomorrow Hematochezia Recommended gastrointestinal evaluation to determine the cause of rectal bleeding Consider stool tests and possibly imaging studies or endoscopy Colonoscopy was planned it tomorrow a.m. Patient started on clear liquid diet Gastroparesis POA Acute enterocolitis POA [ Patient admitted echo surgical floor as inpatient GI consulted Dietary consulted for malnutrition NPO Intra hepatic periportal edema POA Possible acute hepatitis new diagnosis POA MRCP revealed no significant abnormalities Severe malnutrition Start patient on high-protein right after discharge Ulcerative colitis History of colon removed March 2024 History of partial rectum removal July 2024 J-pouch creation October 2024 ] General surgeon recommended to follow GI recommendations Lactose intolerance Follow lactose free diet after discharge Zosyn prophylaxis Normal saline at 100 mL/hour UA positive for leukocytosis CT abdomen/pelvis showed acute enterocolitis, intrahepatic periportal edema, acute hepatitis, acute pyelonephriti Hyper hypoglycemia protocol Hypomagnesemia protocol Hypokalemia protocol PRN pain medications ATTESTATION BY PHYSICIAN I have seen and examined the patient. I reviewed the documentation, medical decision making, and treatment plan as noted by the mid-level provider above. I agree with the findings and plan of care. guillermina Eastman MD, HARSHA MD Mar 29, 2025 17:35
[2025-03-29] MEDS: MESALAMINE 1000 MG SUPP PR SCH (20:42)
[2025-03-29] MEDS ORDERED: PHARMACY COMMUNICATION MISC SCH (21:00)
[2025-03-30] VITALS: BP 100/61; PULSE 78; RESP 16; TEMP 98
[2025-03-30 04:00] VITALS: BP 100/57; PULSE 67; RESP 16; TEMP 98.1
[2025-03-30 04:07] LABS: IMMATURE GRANULOCYTE ABSOLUTE 0.00 K/uL (0-1); NUCLEATED RED BLOOD CELLS 0.0 % (0.0-0.19); PLATELET COUNT (AUTO) 220 K/uL (130-400); RED BLOOD CELL COUNT(AUTO) 3.61 MIL/uL (4.00-5.50); RED CELL DISTRIBUTION WIDTH 13.3 % (11.0-15.5); WHITE BLOOD COUNT (AUTO) 3.3 K/uL (4.8-10.8)
[2025-03-30 04:27] LABS: CREATININE 0.5 mg/dL (0.5-1.0); GLOMERULAR FILTR. RATE CALC 137.0 mL/min (>90); GLUCOSE,RANDOM 99.0 mg/dL (70-105); SODIUM SERUM 139.0 mmol/L (136-145); UREA NITROGEN, BLOOD 1.0 mg/dL (7-18)
[2025-03-30] MEDS: PoTASSium chloRIDE 20MEQ ER 20 MEQ ERTAB PO PRN (04:50)
[2025-03-30 08:00] VITALS: BP 99/70; PULSE 83; RESP 16; TEMP 98.5
[2025-03-30] MEDS: MAGNESIUM OXIDE 400 MG TABLET PO ONE (08:44)
[2025-03-30] MEDS: PoTASSium chloRIDE 20MEQ ER 20 MEQ ERTAB PO ONE ×2 (08:45→17:45)
[2025-03-30 11:48] VITALS: BP 98/78; PULSE 89; RESP 16; TEMP 98.2
--- NOTE | 2025-03-30 12:15 | NUR ---
Nutrition f/u Reviewed labs, notes, and medications. Pt s/p colonoscopy, pouchitis, vit. D 20.5 (L), K 3(L), Ca 7.8(L), elevated b12, Iv abx, 1100 ml balance 03/29/25 per chart review. Wt via standing scale, no edema, well nourished, no wounds per nursing. Mother in room during visit. Mother reported she is getting insurance, working on getting PCP. Pt reported <50%PO intake, diarrhea after breakfast today, denied N/V, prefers apple juice, can't tolerate apple juice. RD informed Pt and family on vit. D levels, Pt and family verbalized understanding. Pt with severe PCM, Supplement thiamin 100 mg/day for 5-7 days + MVI QD for at least 10 days. Recommendations: -Provide prostat jello + gatorade SF TID w/ trays + hikcal + GI soft/bland + 6 small meal -NO LACTOSE -Monitor PO intake -Encourage PO intake as able -Monitor BM -If no BM >3 days consider stool softener -Consider probiotic per Pt w/ diarrhea -Monitor electrolytes -Replenish electrolytes per protocol -Monitor wts -Reweigh as able -Provide vit. D supplement per vit. D 20.1 -Continue banana bag + 100 mg thiamine for minimum 5 days due to severe PCM -Advance diet when medically feasible -Recommend Pt to follow up with PCP -Monitor goals of care RD to follow + available for consult per protocol Addendum: 03/30/25 at [address] Amended: Links added.
[2025-03-30] MEDS ORDERED: THIA100T75 PO (14:08)
[2025-03-30] MEDS ORDERED: POTA-202 PO ×2 (14:08→19:30)
[2025-03-30 16:00] VITALS: BP 91/76; PULSE 94; RESP 18; TEMP 98
[2025-03-30] MEDS ORDERED: FOLI1 PO (16:20)
[2025-03-30] MEDS ORDERED: ERGO2000 PO (16:20)
[2025-03-30] MEDS ORDERED: SACC250C9 PO (16:20)
[2025-03-30] MEDS ORDERED: MVIT PO (16:20)
[2025-03-30] MEDS ORDERED: MESA1S PR (17:48)
[2025-03-30] MEDS ORDERED: CIPR-514 PO (17:48)
[2025-03-30] MEDS ORDERED: THIA100T91 PO (19:30)
[2025-03-30] MEDS ORDERED: PANT40TA54 PO (19:30)
--- NOTE | 2025-03-30 19:30 | NUR ---
dc instruction provided to patient ,patient verbalized understanding
--- NOTE | 2025-03-30 21:12 | DS ---
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 And she was also identified as lactose intolerant, endoscopic evaluation showed gastritis, and colonoscopy confirmed pouchitis. Symptoms improved with supportive care, dietary modification, and initiation of the appropriate medications. At the discharge the patient is tolerating solid food, ambulating and hemodynamically stable. She is advised to follow a regular diet as tolerated, and avoid lactose containing foods and dietary triggers such as caffeine, fatty or spicy foods and maintain adequate hydration. Medications prescribed include antibiotics for pouchitis. And also started ciprofloxacin and mesalamine suppositories. And also advised the patient to avoid apple juices. The patient is instructed to follow up with Gastroenterology in 1-2 weeks and with her primary care physician within 1 week. And she was advised to return to the ED if she experienced inability to tolerate oral intake, worsen to rectal bleeding, recurrent vomiting. Fishing Boat Captain(s): [place] [address] [address] CONSULT NOTE: Consulting physician: Dr. Meyer Consulting service: General surgery Reason for consultation: Multiple abdominal surgeries with nausea and vomiting History of present illness: This is a 20-year-old female with a significant medical history with multiple abdominal surgeries consulted to surgery for evaluation of nausea and vomiting. Patient has had total colectomy in March of 2024 requiring multiple follow up surgeries with most recent in October of 2024 were ostomy was taken down. Due to concerns of continued nausea and vomiting patient presented to the hospital for further evaluation. Patient was taken for endoscopy yesterday with gastritis noted on biopsies taken. Patient overnight reporting a bloody bowel movement. This point in time WBCs 3.1 with a hemoglobin of 10.6. Patient with no significant abdominal discomfort. Patient is currently on clear liquid diet and tolerating. Medical history: History of ulcerative colitis Surgical history: See HPI Review of systems: General: No Fever, No Chills, No Night Sweats, No Fatigue, No Malaise, No Ashtyn etite, No Other HEENT: No Head Aches, No Visual Changes, No Eye Pain, No Ear Pain, No Dysphasia, No Sinus Congestion, No Post Nasal Drip, No Sore Throat, No Other Pulmonary: No Dyspnea, No Cough, No Pleuritic Chest Pain, No Other Cardiovascular: No: Chest Pain, Palpitations, Orthopnea, Paroxysmal No Dyspnea, Edema, Lt Headedness, Other Gastrointestinal: No: Nausea, Vomiting, Diarrhea, Constipation, Melena, Hematochezia, Other Genitourinary: No Dysuria, No Frequency, No Incontinence, No Hematuria, No Ret ention, No Other Musculoskeletal: No: other, neck pain, shoulder pain, arm pain, back pain, hand pain, leg pain, foot pain Skin: No Urticaria, No Rash, No Other Neurological: No: Weakness, Numbness, Incoordination, Change in speech, Confusion, Seizures, Other Physical exam: General: Awake alert and oriented Heart: Regular rate and rhythm} Lungs: Clear to auscultation no distress Abdomen: [Soft, nontender, nondistended Assessment: This is a 20-year-old female with gastroparesis and acute enterocolitis Plan: From surgical standpoint no immediate intervention planned Continue with GI recommendations Surgical team to follow patient closely Doctor Meredith to be updated in patient's status and nursing to report any further acute events GAVIN WYATT Jr. Mar 27, 2025 17:27 Electronically Signed by: JOVAN ALVARADO Jr., PA03/27/25 1727 Electronically Co-Signed by: GABRIEL MEREDITH DO03/28/25 1529 ASTROENTEROLOGY CONSULTATION NOTE Date of Consultation: Mar 28, 2025 Time of Consultation: 12:44 History of Present Illness: [Patient initially presented to ER with c/o vomiting for 20 days. Patient reported she was evaluated by a physician in [place] and was told she had a slow digestion. Patient underwent an EGD on 03/27/25 which showed normal esophagus, normal examined duodenum, and chronic gastritis. Patient now reporting hematochezia. Patient reported having had several surgeries in [facility] beginning with total abdominal colectomy with ileostomy in March 2024. She underwent a second surgery to create a Jpouch in July 2024, and states she had reversal of ileostomy on 10/01/24 but had to have a revision of anastomosis on 10/03/24. Patient reports she has been treated with mesalamine suppositories in December and in January d/t hematochezia. Recommendations for pouchoscopy given d/t hematochezia and need to assess for any pouchitis and any other pathology. All her questions and parent's questions were answered to their satisfaction. Patient agreed to proceed. ] Review of Systems: CONSTITUTIONAL: No malaise or change in sensation of wellbeing. ENMT: No rhinorrhea, otorrhea, sinus pain, ear ache. CARDIOVASCULAR: No angina, palpitations, orthopnea or paroxysmal dyspnea. RESPIRATORY: No SOB. GASTROINTESTINAL: No abdominal pain, nausea, vomiting, diarrhea, hematemesis, melena or change in the patient's habitual bowel movements consistency/number. GENITOURINARY: No dysuria, hematuria or change in bladder continence. MUSCULOSKELETAL: No new muscle pain or decrease in muscular strength. No new joint swelling, redness or tenderness. SKIN: No new rash. Past Medical History: [ Ulcerative colitis ] PAST SURGICAL HISTORY: [ : Removed March 2024, partial rectal removed July 2024. J pouch creation October 2024. All the surgeries we will performed in [facility] ] PAST SOCIAL HISTORY: [ Patient denies smoking. Patient denies any drug illicit. Patient denies any alcohol illicit ] FAMILY HISTORY: [ Patient lives at home with the family] Uncoded Allergies: Uncoded Allergies: ' PROMOTIL ' (Allergy, Unknown, 03/26/25) Physical Exam: GEN: Awake, alert, oriented in person, time and place, and in no acute distress. HEENT: . No rhinorrhea. Oral pharyngeal mucosa is pink, moist and within normal limits. CHEST: Inspection, palpation and percussion of the chest were unremarkable. Lung auscultation revealed normal breath sounds bilaterally. CARDIAC: PMI is within normal limits. Heart sounds are regular. ABD: Soft, non-tender and not distended. No peritoneal signs on palpation. No organomegaly. Normal bowel sounds. EXT: No cyanosis or clubbing. No edema. SKIN: Intact. No rashes. JOINTS: No evidence of synovitis or acute arthritis. NEURO: Alert and oriented to name, place and person. No focal motor deficits. Normal speech. Strength is normal. Vital Sign (Last 24 Hours) 03/27/25 03/28/25 20:00 11:37 Temp 97.3 Pulse 64 Resp 16 B/P (MAP) 97/65 Pulse Ox 99 O2 Delivery Room Air O2 Flow Rate 0 FiO2 21 Intake & Output (last 24hrs) 03/27/25 03/27/25 03/28/25 15:00 23:00 07:00 Intake Total 800 ml Balance 800 ml Laboratory: [ ] Laboratory: Test 03/28/25 11:08 03/28/25 03:36 03/27/25 10:34 03/27/25 08:47 Range/Units Whole Blood Glucose 81 70-110 MG/DL White Blood Count 2.9 L 4.8-10.8 K/uL Red Blood Count 3.91 L 4.00-5.50 MIL/uL Hemoglobin 11.0 #L 12.0-16.0 g/dL Hematocrit 33.7 #L 36-48 % Mean Corpuscular Volume 86.2 80-100 fL Mean Corpuscular Hemoglobin 28.1 27.0-33.0 pg Mean Corpuscular Hemoglobin Concent 32.6 32.0-36.0 g/dL Red Cell Distribution Width 13.2 11.0-15.5 % Platelet Count 243 130-400 K/uL Mean Platelet Volume 10.0 7.5-10.5 fL Immature Granulocyte % (Auto) 0.0 0-1 % Neutrophils (%) (Auto) 50.5 40.0-77.0 % Lymphocytes (%) (Auto) 37.2 21.0-51.0 % Monocytes (%) (Auto) 6.3 3.0-13.0 % Eosinophils (%) (Auto) 4.9 0.0-8.0 % Basophils (%) (Auto) 1.1 0.0-5.0 % Neutrophils # (Auto) 1.4 L 1.8-7.7 K/uL Lymphocytes # (Auto) 1.1 1.0-4.8 K/uL Monocytes # (Auto) 0.2 0.1-1.0 K/uL Eosinophils # (Auto) 0.14 0.00-0.70 K/uL Basophils # (Auto) 0.03 0.00-0.20 K/uL Absolute Immature Granulocyte (auto 0.00 0-1 K/uL Segmented Neutrophils % 39 L 40-70 % Band Neutrophils % 1 0-2 % Lymphocytes % (Manual) 50 H 22-44 % Monocytes % (Manual) 6 2-9 % Eosinophils % (Manual) 4 1-6 % Nucleated Red Blood Cells 0.0 0.0-0.19 % Differential Comment MANUAL DIF White Cell Morphology Comment Platelet Morphology Comment ADEQUATE Red Blood Cell Morphology HYPOCHROM CELLS 1+ Sodium Level 138 136-145 mmol/L Potassium Level 2.8 *L 3.5-5.1 mmol/L Chloride Level 103 101-111 mmol/L Carbon Dioxide Level 24 21-32 mmol/L Blood Urea Nitrogen 1 L 7-18 mg/dL Creatinine 0.5 0.5-1.0 mg/dL Glomerular Filtration Rate Calc 137 >90 mL/min Random Glucose 83 70-105 mg/dL Total Calcium 8.2 L 8.5-10.1 mg/dL Bedside Glucose Comment Notified Nurse Whole Blood Ketones Quantitative 0.9 H 0.0-0.6 mmol/L Test 03/27/25 05:00 Range/Units Lactic Acid Level 0.9 0.8-2.5 mmol/L Magnesium Level 1.80 1.80-2.40 mg/dL Total Bilirubin 0.8 0.2-1.0 mg/dL Direct Bilirubin 0.2 0.0-0.3 mg/dL Aspartate Amino Transf (AST/SGOT) 16 10-37 U/L Alanine Aminotransferase (ALT/SGPT) 21 12-78 U/L Alkaline Phosphatase 80 50-136 U/L Ammonia 12 11-32 umol/L Total Creatine Kinase 146 21-232 U/L B-Type Natriuretic Peptide 9 0-100 pg/mL Total Protein 5.8 L 6.0-8.3 g/dL Albumin 2.7 L 3.5-5.0 g/dL Amylase Level 24 L 25-115 U/L Lipase 38 16-77 U/L Vitamin B12 Level 1051 H 193-986 pg/mL Procalcitonin < 0.05 L 0.05-0.5 ng/mL Thyroid Stimulating Hormone (TSH) 2.14 # 0.36-3.74 uIU/mL Free Thyroxine (T4) Direct 1.26 0.76-1.46 ng/dL Current Medications Medications (Trade) Dose Ordered Sig/Baljit Route PRN Reason Start Time Stop Time Status Last Admin Dose Admin Acetaminophen (TYLenol 325MG TAB) 650 mg Q4H PRN PO MILD PAIN (1-3) 03/26/25 07:30 04/25/25 07:29 Acetaminophen (TYLenol 325MG TAB) 650 mg Q6H PRN PO MILD PAIN (1-3) 03/26/25 07:30 03/26/25 07:22 DC Acetaminophen (TYLenol 325MG TAB) 650 mg Q6H PRN PO TEMPERATURE GREATER THAN 101.5 03/26/25 07:30 04/25/25 07:29 Al Hydroxide/Mg Hydroxide (MAALox PLUS 30ML) 30 ml Q6H PRN PO INDIGESTION 03/26/25 07:30 04/25/25 07:29 Dextrose (D50w) 50 ml AD PRN IV HYPOGLYCEMIA PROTOCOL 03/26/25 07:30 04/25/25 07:29 03/27/25 05:31 50 ML Dextrose/Sodium Chloride 1,000 ml @ 75 mls/hr [id number] IV 03/27/25 08:30 04/26/25 08:29 03/28/25 10:51 75 MLS/HR Diphenhydramine HCl (BENAdryl INJ) 25 mg Q6H PRN IV SEVERE ITCHING/RASH 03/26/25 07:30 04/25/25 07:29 Famotidine (Pepcid 20mg Vial) 20 mg BID PRN IV NAUSEA/VOMITING 03/26/25 07:30 04/25/25 07:29 Folic Acid 1 mg/ Thiamine HCl 100 mg/Sodium Chloride 1,010 ml @ 70 mls/hr DAILY IV 03/28/25 09:00 03/30/25 23:26 03/28/25 10:46 70 MLS/HR Glucagon (Glucagon 1mg Kit) 1 mg AD PRN IM HYPOGLYCEMIA PROTOCOL 03/26/25 07:30 04/25/25 07:29 Guaifenesin/ Dextromethorphan (RobiTUSSin DM 200/20MG 10ML) 10 ml Q4H PRN PO COUGH 03/26/25 07:30 04/25/25 07:29 Hydralazine HCl (APRESOLine 20MG INJ) 10 mg Q6H PRN IV For:SBP above 160;DBP above 90 03/26/25 07:30 04/25/25 07:29 Insulin Human Regular (humuLIN R 100 UNIT/ML 3ML) INSULIN SLIDING SCAL... ACHS SQ 03/26/25 07:30 04/25/25 07:29 Ketorolac Tromethamine (toRADol) 15 mg Q8H PRN IV MODERATE PAIN (4-6) 03/26/25 07:30 03/27/25 08:16 DC Lactulose (Constulose 20gm/ 30ml Udcup) 20 gm BID PRN PO CONSTIPATION 03/26/25 07:30 04/25/25 07:29 Magnesium Sulfate 50 ml @ 0 mls/hr PROTOCOL PRN IV OTHER [SEE ORDER COMMENTS] 03/26/25 07:30 04/25/25 07:29 Morphine Sulfate (morPHINE 2MG SYG) 1 mg Q4H PRN IVP SEVERE PAIN (7-10) 03/26/25 07:30 04/02/25 07:29 Multivitamins/ Minerals 10 ml/ Folic Acid 1 mg/ Thiamine HCl 100 mg/Sodium Chloride 1,010 ml @ 70 mls/hr DAILY IV 03/28/25 09:00 03/28/25 08:50 DC Nitroglycerin (Nitrostat) 0.4 mg PROTOCOL PRN SL CHEST PAIN 03/26/25 07:30 04/25/25 07:29 Ondansetron HCl (zoFRAN 4MG INJ) 4 mg Q6H PRN IV NAUSEA/VOMITING 03/26/25 07:30 04/25/25 07:29 Piperacillin Sod/ Tazobactam Sod 50 ml @ 12.5 mls/hr ZOSY8 IV 03/26/25 13:00 04/05/25 12:59 03/28/25 05:57 12.5 MLS/HR Potassium Chloride 100 ml @ 100 mls/hr AD PRN IV POTASSIUM PROTOCOL 03/26/25 07:30 04/25/25 07:29 03/28/25 04:42 100 MLS/HR Potassium Chloride (K-Dur/Klor-Con 20meq) 20 meq AD PRN PO POTASSIUM PROTOCOL 03/26/25 07:30 04/25/25 07:29 Potassium Chloride (KCl 10% Elixir 20meq/15ml) 20 meq AD PRN PO POTASSIUM PROTOCOL 03/26/25 07:30 04/25/25 07:29 Sodium Chloride 1,000 ml @ 100 mls/hr Q10H IV 03/26/25 07:30 03/27/25 08:16 DC 03/26/25 20:48 100 MLS/HR Zolpidem Tartrate (AmbIEN) 5 mg HS PRN PO INSOMNIA 03/26/25 07:30 04/25/25 07:29 Diagnostics / Radiology: [COPY/PASTE HERE IF NO REPORTS PLEASE DELETE SECTION] Assessment: [Hematochezia Crohns Plan: Case discussed with Dr. Ashford [Clear liquid diet today Npo after midnight Plan for pouchoscopy in am. Information on procedure with risks and benefits explained to patient and parents. All their questions were answered and they agreed to proceed with exam. Please call with questions, concerns and change in clinical status Thank you for this consult. ] Procedure(s): [facility] [address] [place] [address] IMAGING REPORT Signed PATIENT: CECILLE GUTIERREZ MR#: [id number] : 2005 SEX: F AGE: 20 LOCATION: [facility] ORDER 2 STATUS: REG REPORT#: [id number] SERVICE 1 REASON: vomitngs for the past 20 days, weight loss ORDERING PHYSICIAN: FERDINAND COBB MD PROCEDURE: ABD PEL W - CT ABDOMEN/PELVIS W/CONTRAST EXAM: CT Abdomen and Pelvis with IV contrast CLINICAL HISTORY: Vomiting for the past 20 days. Weight loss. TECHNIQUE: Thin collimated axial CT images of the abdomen and pelvis were obtained, with sagittal and coronal reformatted images also submitted. A CT scan is done according to ALARA (As Low As Reasonably Achievable). CONTRAST: Contrast information is not available. COMPARISON: None. FINDINGS: Unremarkable visualized lung parenchyma. No focal abnormality within the gallbladder, pancreas, spleen, or adrenals. There are multifocal wedge-shaped hypodensities in the right kidney on early postcontrast which which become homogeneous on delayed postcontrast phase, the largest focus measures up to 1.5 cm; the possibility of a mild form of acute pyelonephritis cannot be entirely excluded. Mild diffuse intrahepatic periportal edema. Diffuse mucosal thickening in the small and large bowel loops, concerning acute enterocolitis. Surgical sutures around the rectosigmoid area. Bowel loops are normal in caliber without evidence of obstruction or ileus. The appendix is normal. There is no abnormality within the urinary bladder. Unremarkable reproductive organs. Abdominal and pelvic vessels are patent. No lymphadenopathy. Minimal free fluid in the pelvis. There is no acute osseous abnormality. Bilateral chronic L5 spondylolysis with grade 1 anterior listhesis of L5 on S1. IMPRESSIONS: Acute enterocolitis. Mild diffuse intrahepatic periportal edema, concerning mild acute hepatitis. There are multifocal wedge-shaped hypodensities in the right kidney on early postcontrast which which become homogeneous on delayed postcontrast phase, the largest focus measures up to 1.5 cm; the possibility of a mild form of acute pyelonephritis cannot be entirely excluded. Minimal free fluid in the pelvis. There may be a possibility of hyponatremia. /[place] DICTATED BY: SHALOM CAMPOS Jr., MD DATE: 03/26/25708 ELECTRONICALLY SIGNED BY: SHALOM CAMPOS Jr., MD DATE: 03/26/25[address] [place] [address] IMAGING REPORT Signed PATIENT: CECILLE GUTIERREZ MR#: [id number] : 2005 SEX: F AGE: 20 LOCATION: [facility] ORDER 7 STATUS: ADM IN [facility] REPORT#: [id number] SERVICE 5 REASON: Enterocolitis, hepatic edema, possible hepatitis, pyelonephritis ORDERING PHYSICIAN: MARILYN MCCORMACK APRN PROCEDURE: ABDOMEN - US ABDOMINAL COMPLETE EXAMINATION: ULTRASOUND OF THE ABDOMEN (LIMITED) WITH COLOR DOPPLER. CLINICAL HISTORY: Enterocolitis. Hepatic edema. Possible hepatitis, pyelonephritis. COMPARISON: CT abdomen and pelvis with contrast from the same day. TECHNIQUE: Real-time grayscale ultrasound images of the abdomen. In addition, color Doppler is medically necessary to perform in order to evaluate vascularity and blood flow. FINDINGS: Liver: Normal in caliber, the right hepatic lobe measures 14.2 cm in the craniocaudal dimension. There is increased echogenicity of the hepatic parenchyma. There is no focal hepatic abnormality. There is normal spectral Doppler of the main portal vein (PSV is 16 cm/s). There is left intrahepatic biliary radical dilatation that measures 0.4 cm. Gallbladder: Within normal limits with normal wall thickness (0.2 cm). No hyperemia or pericholecystic free fluid. There is no cholelithiasis. Common bile duct is normal in caliber, measuring 0.3 cm. Spleen is normal in caliber and measures 9.4 x 2.6 x 2.2 cm in craniocaudal, AP and transverse dimensions respectively. No focal lesions. Pancreas: Normal in caliber and echotexture. No calcification or dilated pancreatic duct. The kidneys are normal in caliber, the right kidney measures 9.4 x 3.7 x 4.0 cm and the left kidney measures 9.3 x 4.8 x 5.3 cm in craniocaudal, AP, and transverse dimensions respectively. There is normal renal cortical thickness, and cortical echogenicity. There is no renal calculus or hydronephrosis. The proximal, mid, and distal aspects of abdominal aorta are normal in caliber measuring 1.6 cm, 1.5 cm, and 1.2 cm in the AP dimension respectively. Visualized aspects of the inferior vena cava are unremarkable. IMPRESSION: Hepatic steatosis. Dilated left intrahepatic biliary radical. Recommend MRCP. No significant changes. /[place] DICTATED BY: LINDA BRO MD DATE: 03/27/25719 ELECTRONICALLY SIGNED BY: LINDA BRO MD DATE: 03/27/25719 [place] [address] [place] [address] IMAGING REPORT Signed PATIENT: CECILLE GUTIERREZ MR#: [id number] : 2005 SEX: F AGE: 20 LOCATION: [facility] ORDER 7 STATUS: ADM IN REPORT#: [id number] SERVICE 5 REASON: congestion ORDERING PHYSICIAN: MARILYN MCCORMACK APRN PROCEDURE: CXR1VW - CHEST 1VW EXAM: CR Chest, 1 View. CLINICAL HISTORY: congestion COMPARISON: None provided. FINDINGS: LUNGS: The lungs show no infiltrate or other acute finding. PLEURAL SPACES: No evidence of pleural effusion or pneumothorax. MEDIASTINUM: Cardiac size and mediastinal contours within normal limits. BONES: No aggressive appearing osseous lesion seen. IMPRESSION: No acute cardiopulmonary pathology is evident. /[place] DICTATED BY: LINDA BRO MD DATE: 03/26/25924 ELECTRONICALLY SIGNED BY: LINDA BRO MD DATE: 03/26/25924 [place] [address] [place] [address] IMAGING REPORT Signed PATIENT: CECILLE GUTIERREZ MR#: [id number] : 2005 SEX: F AGE: 20 LOCATION: [facility] ORDER 1411 STATUS: ADM IN REPORT#: [id number] SERVICE 1359 REASON: Dilated left intrahepatic biliary radical ORDERING PHYSICIAN: AREN ANAYA MD PROCEDURE: MRCP WO - MRCP(ABDWO)CHOLANGIOPANCREATOG EXAM: MRCP CLINICAL HISTORY: Dilated left intrahepatic biliary radical. COMPARISON: CT abdomen and pelvis and ultrasound abdomen dated March 26, 2025. CONTRAST: Not applicable. TECHNIQUE: Multisequence, multiplanar MRCP was performed without intravenous contrast. Sagittal and coronal reformatted images submitted for interpretation. FINDINGS: LIVER: Unremarkable. No focal hepatic lesions. GALLBLADDER AND BILE DUCTS: The gallbladder and biliary ducts are unremarkable. No gallstones or biliary ductal dilatation. PANCREAS: The pancreas is unremarkable. No ductal dilation. SPLEEN: The spleen is unremarkable. STOMACH AND BOWEL: No acute bowel process identified on limited evaluation. ADRENALS: The adrenal glands are unremarkable. KIDNEYS: The kidneys are unremarkable. No hydronephrosis or masses. LYMPH NODES: No lymphadenopathy. IMPRESSION: No biliary ductal dilatation. No gallstones. No pancreatic abnormality. /[place] DICTATED BY: LINDA BRO MD DATE: 03/28/25839 ELECTRONICALLY SIGNED BY: LINDA BRO MD DATE: 03/28/25839 Assessment/Plan: ASSESSMENT: Pouchitis Hematochezia [ Gastroparesis POA Acute enterocolitis POA Lactose intolerance Intractable nausea and vomiting POA Intra hepatic periportal edema POA Possible acute hepatitis new diagnosis POA Acute pyelonephritis POA Severe malnutrition POA Hypertension POA Acute complicated cystitis POA Ulcerative colitis History of colon removed March 2024 History of partial rectum removal July 2024 J-pouch creation October 2024 ] PLAN: Provide prostat jello + gatorade SF TID w/ trays + hikcal + GI soft/bland + 6 small meal -NO LACTOSE -Monitor PO intake -Encourage PO intake as able -Monitor BM -If no BM >3 days consider stool softener -Consider probiotic per Pt w/ diarrhea -Monitor electrolytes -Replenish electrolytes per protocol -Monitor wts -Reweigh as able -Provide vit. D supplement per vit. D 20.1 -Continue banana bag + 100 mg thiamine for minimum 5 days due to severe PCM -Advance diet when medically feasible -Recommend Pt to follow up with PCP -Monitor goals of care Discharge Instructions: Provide prostat jello + gatorade SF TID w/ trays + hikcal + GI soft/bland + 6 small meal -NO LACTOSE -Monitor PO intake -Encourage PO intake as able -Monitor BM -If no BM >3 days consider stool softener -Consider probiotic per Pt w/ diarrhea -Monitor electrolytes -Replenish electrolytes per protocol -Monitor wts -Reweigh as able -Provide vit. D supplement per vit. D 20.1 -Continue banana bag + 100 mg thiamine for minimum 5 days due to severe PCM -Advance diet when medically feasible -Recommend Pt to follow up with PCP -Monitor goals of care MEDICATIONS Take the prescribed antibiotics for pouchitis ciprofloxacin, and continue use PPI. Activity: Resume normal activity as tolerated Follow-up: Schedule an appointment with Gastroenterology in 1-2 weeks and primary care within 1 week Home Medications: Active Scripts Potassium Chloride (Potassium Chloride) 20 Meq Tab.er.prt, 1 TAB PO DAILY for 30 Days, #30 TAB 0 Refills Prov:ANDERSON MAIN MD 03/30/25 Thiamine HCl (Vitamin B-1) 100 Mg Tablet, 1 TAB PO DAILY for 10 Days, #10 TAB 0 Refills Prov:ANDERSON MAIN MD 03/30/25 Pantoprazole Sodium (Pantoprazole Sodium) 40 Mg Tablet.dr, 1 TAB PO DAILY for 30 Days, #30 TAB 0 Refills Prov:ANDERSON MAIN MD 03/30/25 Mesalamine (Canasa Supp) 1,000 Mg Supp, 1000 MG WV HS, #15 SUPP Prov:ANDERSON MAIN MD 03/30/25 Ciprofloxacin HCl (Ciprofloxacin HCl) 500 Mg Tablet, 500 MG PO BID for 14 Days, #28 TAB Prov:ANDERSON MAIN MD 03/30/25 Ergocalciferol (Vitamin D2) (Vitamin D2) 50 Mcg (2000 Unit) Tablet, 1 TAB PO DAILY for 30 Days, #30 TAB 0 Refills Prov:ANDERSON MAIN MD 03/30/25 Saccharomyces Boulardii (Probiotic) 250 Mg Capsule, 1 CAP PO DAILY for 14 Days, #14 CAP 0 Refills Prov:ANDERSON MAIN MD 03/30/25 Folic Acid (Folvite) 1 Mg Tab, 1 TAB PO DAILY for 30 Days, #30 TAB 0 Refills Prov:ANDERSON MAIN MD 03/30/25 Multivitamins,Therapeutic (Multivitamin Tablet) 400 Mcg Tab, 1 TAB PO DAILY for 30 Days, #30 TAB 0 Refills Prov:ANDERSON MAIN MD 03/30/25 Reported Medications Ondansetron HCl (Ondansetron HCl) 8 Mg Tablet, 8 MG PO BID, TAB 03/26/25 [Cinitaprida] No Conflict Check, 1 MG PO Q12HR 03/26/25 [Mirtazapina] No Conflict Check, 15 MG PO HS 03/26/25 Discontinued Reported Medications Omeprazole (Omeprazole) 20 Mg Tablet., 20 MG PO DAILY, TAB 03/26/25 ATTESTATION BY PHYSICIAN I have seen and examined the patient. I reviewed the documentation, medical decision making, and treatment plan as noted by the mid-level provider above. I agree with the findings and plan of care. guillermina Eastman MD, HARSHA MD Mar 30, 2025 21:12
[2025-03-31 06:12] LABS: C DIFFICILE TOXIN A/B Not Detected (Not Detected); ENTEROAGGREGATIVE ECOLI Not Detected (Not Detected); GIARDIA LAMBLIA Detected (Not Detected); PLESIOMONAS SHIGELOIDES Not Detected (Not Detected); SAPOVIRUS Not Detected (Not Detected); SHIGELLA/ENTEROINVASIVE E COLI Not Detected (Not Detected); VIBRIO Not Detected (Not Detected); VIBRIO CHOLERAE Not Detected (Not Detected)
[2025-03-31] MEDS ORDERED: METR-361 PO (08:51)
== END 2025-03-30 20:05 | disposition home or self-care (01) | DRG 393 ==
LOC: EDH 02:13 → EDHIP 02:14 → UNDOADMIN 07:06 → EDHIP 08:51 → 4AH 09:25
PROVIDERS: ADMIT Internal Medicine; ATTEND Internal Medicine
PROC: 0DB68ZX Excision of Stomach, Via Natural or Artificial Opening Endoscopic, Diagnostic (ICD-10-PCS; principal; 2025-03-27)
PROC: 0DB78ZX Excision of Stomach, Pylorus, Via Natural or Artificial Opening Endoscopic, Diagnostic (ICD-10-PCS; 2025-03-27)
PROC: 0DBB8ZX Excision of Ileum, Via Natural or Artificial Opening Endoscopic, Diagnostic (ICD-10-PCS; 2025-03-29)
PROC: 0DBP8ZX Excision of Rectum, Via Natural or Artificial Opening Endoscopic, Diagnostic (ICD-10-PCS; 2025-03-29)
DX: K91.850 Pouchitis (principal); E43 Unspecified severe protein-calorie malnutrition; B17.9 Acute viral hepatitis, unspecified; N10 Acute pyelonephritis; N30.00 Acute cystitis without hematuria; K50.111 Crohn's disease of large intestine with rectal bleeding; K31.84 Gastroparesis; K76.0 Fatty (change of) liver, not elsewhere classified; K29.50 Unspecified chronic gastritis without bleeding; I10 Essential (primary) hypertension; R60.9 Edema, unspecified; E73.9 Lactose intolerance, unspecified; Z93.2 Ileostomy status
CPT/HCPCS: 36415; 43239; 45380; 71045; 74177; 74181; 76700; 80048; 80076; 80305; 81001; 82010; 82140; 82150; 82306; 82550; 82607; 82948; 83036; 83605; 83690; 83735; 83880; 84132; 84145; 84425; 84439; 84443; 84702; 85014; 85018; 85025; 87040; 87086; 87426; 87507; 87804; 96361; 96374; 96375; 99285; A4606; G0378; J2405; J2470; J2543; J2704; J3411; J3480; J3490; J7030; J7070; Q9967; A4215; A4221; A4222; A4223; A4620; A4663; A7002